=== PATIENT | male | born 1950 | race Caucasian/White ===

== ENCOUNTER 2019-01-23 09:03 | Observation (INO) | payer MEDICARE, BC ==
[2019-01-23] MEDS ORDERED: HYDROcodone/APAP 5-325MG 1 EACH TAB PO STA (09:44)
--- NOTE | 2019-01-23 10:01 | XR ---
Chest x-ray with right RIBS HISTORY: Trauma and pain frontal view of the chest and 4 views of the right ribs submitted. There is a small right apical pneumothorax. Sixth rib shows minimally displaced fracture laterally. T here may be small pleural effusion. Possible nondisplaced seventh rib fracture also present. Heart is enlarged although patient is rotated. Right hemidiaphragm slightly elevated. Arthropathy noted in th e right shoulder. The aorta is dense. Degenerative disc changes in the visualized spine. IMPRESSION: Rib fractures on the right, small apical right pneumothorax.
--- NOTE | 2019-01-23 10:44 | ED ---
Fall HPI - General Chief Complaint: Fall Stated Complaint: FALL AT HOME Time Seen by Provider: 01/23/19 09:26 Source: patient Mode of arrival: ambulatory - History of Present Illness Initial Comments: Patient is a 69-year-old male complaining of right-sided rib pain x 3 days. Patient states he was getting out of the bathtub on Wednesday night slipped and fell onto his right side, on the side of the tub. States his pain was minimal and controlled with Tylenol for the first 2 days and then yesterday pain increased. Admits to pain with deep breaths, sitting, standing, and twisting. Patient denies hitting his head or any other injuries. - Related Data Home Medications Medication Instructions Recorded Confirmed Acetaminophen-Codeine 300-30mg 1 tab PO ONCE PRN 01/23/19 01/23/19 [Tylenol w/codeine #3] Aspirin EC [Ecotrin Low Dose] 81 mg PO HS 01/23/19 01/23/19 Carbidopa-Levodopa 25-100 mg 1 tab PO TID 01/23/19 01/23/19 [Sinemet 25-100] Simvastatin [Zocor] 20 mg PO HS 01/23/19 01/23/19 rOPINIRole HCL [Requip] 2 mg PO TID 01/23/19 01/23/19 Allergies Allergy/AdvReac Type Severity Reaction Status Date / Time Penicillins Allergy Rash/Hives Verified 01/23/19 09:25 Review of Systems ROS Statement: Those systems with pertinent positive or pertinent negative responses have been documented in the HPI. ROS Other: All systems not noted in ROS Statement are negative. Past Medical History Additional Past Medical History / Comment(s): parkensons hypotension History of Any Multi-Drug Resistant Organisms: None Reported Past Surgical History: Orthopedic Surgery Additional Past Surgical History / Comment(s): oral surg foot Past Psychological History: No Psychological Hx Reported Smoking Status: Former smoker Past Alcohol Use History: Occasional Past Drug Use History: None Reported General Exam - General Exam Comments Initial Comments: GENERAL: Well-appearing, well-nourished and in no acute distress, although bren ears to be in pain. HEAD: Atraumatic, normocephalic. EYES: Pupils equal round and reactive to light, extraocular movements intact, sclera anicteric, conjunctiva are normal. ENT: TMs normal, nares patent, oropharynx clear without exudates. Moist mucous membranes. NECK: Normal range of motion, supple without lymphadenopathy or JVD. LUNGS: Breath sounds clear to auscultation bilaterally and equal. No wheezes rales or rhonchi. Pain with deep inhalation. HEART: Regular rate and rhythm without murmurs, rubs or gallops. ABDOMEN: Soft, nontender, normoactive bowel sounds. No guarding, no rebound. No masses appreciated. : Deferred EXTREMITIES: Normal range of motion, no pitting or edema. No clubbing or cyanosis. NEUROLOGICAL: Cranial nerves II through XII grossly intact. Normal speech, no rmal gait. PSYCH: Normal mood, normal affect. SKIN: Warm, Dry, normal turgor, no rashes or lesions noted. Chest: TTP over right anterior ribs, ~#5-8 Limitations: no limitations Course Vital Signs 01/23/19 01/23/19 09:07 09:55 Temperature 97.8 F Pulse Rate 65 59 L Respiratory 16 16 Rate Blood Pressure 195/104 175/102 O2 Sat by Pulse 97 98 Oximetry Medical Decision Making - Medical Decision Making Patient is a 69-year-old male complaining of right-sided rib pain 3 days after falling trying to get out of the bathtub. X-ray reveals 6 and seventh rib fractures and small right pneumothorax. CT shows 15-20% pneumo on the right. Case discussed with Dr. Mclean. Patient will be admitted to trauma with Dr. Ortega and consult with Dr. Ortega. Disposition Clinical Impression: Pneumothorax on right, Multiple fractures of ribs, right side, initial encounter for closed fracture Disposition: ADMITTED IP TO THIS HOSP Condition: Stable Referrals: Willi Hall MD [Primary Care Provider] - 1-2 days Decision Time: 12:23
--- NOTE | 2019-01-23 11:15 | CT ---
EXAMINATION TYPE: CT chest wo con DATE OF EXAM: 01/23/2019 COMPARISON: Chest x-ray of the same date HISTORY: chest pain CT DLP: 404 mGycm. Automated Exposure Control for Dose Reduction was Utilized. TECHNIQUE: CT scan of the thorax is performed without IV contrast. FINDINGS: LUNGS: There is a right-sided pneumothorax estimated at approximately 15-20 % with maximum pleural se paration at the right lung base of 2.7 cm and at the right lung apex of 5 mm. Linear bibasilar atelec tasis is seen. No findings concerning for pulmonary laceration at this time. Trace right pleural effu patito is noted. MEDIASTINUM: Lack of IV contrast is noted to limit evaluation for mediastinal and especially hilar ad enopathy. There are no definitive greater than 1 cm hilar or mediastinal lymph nodes. Cardiomegaly is present without pericardial effusion severe coronary artery calcifications are noted. OTHER: The thyroid gland is enlarged within the left lobe and heterogenous. Thyroid ultrasound is rec ommended on a nonemergent basis. There is an acute fracture that is minimally displaced of the right sixth rib with displacement 1 mm. Moderate degenerative changes of the thoracic spine are seen. Flowing anterior osteophytes are prese nt suggesting diffuse idiopathic skeletal hyperostosis. IMPRESSION: 1. Confirmation of a right basilar pneumothorax estimated at approximately 15-20% with a minimally di splaced right lateral sixth rib fracture and bibasilar atelectasis. 2. Enlargement and heterogeneity of the left thyroid lobe. Thyroid ultrasound is recommended for furt her evaluation on a nonemergent basis.
[2019-01-23] MEDS ORDERED: ONDANSETRON 4 MG/2 ML VIAL IVP PRN (12:11)
[2019-01-23] MEDS ORDERED: NALOXONE 0.4 MG/ML 1 ML VIAL IV PRN (12:11)
[2019-01-23] MEDS ORDERED: MORPHINE SULFATE 4 MG/ML SYRINGE IV PRN (12:11)
[2019-01-23] MEDS ORDERED: ACETAMINOPHEN TAB 325 MG TAB PO PRN (12:11)
[2019-01-23] MEDS ORDERED: hydrALAZINE HCL 20 MG/ML 1 ML VIAL IVP STA (14:01)
--- NOTE | 2019-01-23 15:33 | P.GSCN ---
History of Present Illness Consult date: 01/23/19 Reason for Consult: Traumatic pneumothorax, surgical recommendations Requesting physician: Rafia Burciaga History of present illness: This is a 69-year-old gentleman who follows on an outpatient basis with Dr. Willi Hall. He has a previous medical history of tobacco dependence, Parkinson's, hypotension, and orthopedic surgery. He presented to [facility] emergency room with complaints of right-sided rib pain. Apparently he was home on Wednesday night and getting out of the bathtub, he slipped and fell onto his right side hitting his right ribs on the top surface. His pain was initially controlled with Tylenol, however over the last couple of days the pain has increased to the point where he felt he needed to present to the emergency room. Rib x-ray completed in the emergency room demonstrated a small right apical pneumothorax with rib fracture to the sixth and seventh rib. CAT scan of the chest was also completed confirming right-sided pneumothorax approximately 15-20% with sixth rib fracture. Consultation was placed to Dr. Ortega from cardiothoracic surgery for treatment recommendations. Review of Systems Review of systems was completed and was negative except as noted. - Respiratory Reports pain Past Medical History Additional Past Medical History / Comment(s): parkensons hypotension History of Any Multi-Drug Resistant Organisms: None Reported Past Surgical History: Orthopedic Surgery Additional Past Surgical History / Comment(s): oral surg foot Past Psychological History: No Psychological Hx Reported Smoking Status: Former smoker Past Alcohol Use History: Occasional Past Drug Use History: None Reported Medications and Allergies Home Medications Medication Instructions Recorded Confirmed Type Acetaminophen-Codeine 300-30mg 1 tab PO ONCE PRN 01/23/19 01/23/19 History [Tylenol w/codeine #3] Aspirin EC [Ecotrin Low Dose] 81 mg PO HS 01/23/19 01/23/19 History Carbidopa-Levodopa 25-100 mg 1 tab PO TID 01/23/19 01/23/19 History [Sinemet 25-100] Simvastatin [Zocor] 20 mg PO HS 01/23/19 01/23/19 History rOPINIRole HCL [Requip] 2 mg PO TID 01/23/19 01/23/19 History Allergies Allergy/AdvReac Type Severity Reaction Status Date / Time Penicillins Allergy Rash/Hives Verified 01/23/19 09:25 Surgical - Exam Vital Signs Temp Pulse Resp BP Pulse Ox 97.8 F 65 16 195/104 97 01/23/19 09:07 01/23/19 09:07 01/23/19 09:07 01/23/19 09:07 01/23/19 09:07 - General well developed, well nourished, no distress, moderate pain - Eyes PERRL, normal ocular movement - ENT no hearing loss - Neck no masses, no bruits, trachea midline - Respiratory Lungs sounds clear bilaterally. Respirations even, nonlabored. Currently on room air with oxygen saturation 98%. No chest wall deformities although patient does have point tenderness over the right anterior rib area. - Cardiovascular S1, S2 present. Regular rate and rhythm. Palpable peripheral pulses bilaterally. No edema present. No calf pain or tenderness noted. - Abdomen Abdomen: soft, non tender, bowel sounds - Genitourinary Deferred - Rectum Deferred - Integumentary no rash, no growths - Neurologic normal coordination, normal sensation - Musculoskeletal normal posture - Psychiatric oriented to time, oriented to person, oriented to place, speech is normal, memory intact Results - Imaging Chest x-ray: report reviewed, image reviewed CT scan - chest: report reviewed, image reviewed Assessment and Plan Assessment: 1. Right-sided traumatic pneumothorax, status post fall 2. Right-sided rib fractures 3. Previous tobacco dependence Plan: The patient was seen and examined in the emergency room. Chart says diagnostics were reviewed. The patient's chest x-ray and CAT scan were reviewed with Dr. Ortega. The patient does have some continued rib pain but is in no acute distress and is oxygenating appropriately. At this time we recommend no surgical intervention. Will continue to monitor overnight. Chest x-ray ordered for the morning. If no increase in pneumothorax and patient remains stable he may be discharged to home tomorrow. Patient needs adequate pain control. Medical management per primary care service. Thank you for this consult. Please call us with any questions. Time with Patient: Greater than 30
[2019-01-23 16:00] VITALS: RESP 20; BMI 31.3
[2019-01-23] MEDS: HYDROcodone/APAP 5-325MG 1 EACH TAB PO PRN ×2 (16:31→20:38)
[2019-01-23] MEDS: CARBIDOPA-LEVODOPA 25-100 MG 1 EACH TAB PO SCH ×2 (16:39→21:29)
[2019-01-23] MEDS ORDERED: ATORVASTATIN 10 MG TAB PO SCH (21:00)
[2019-01-23 21:53] VITALS: TEMP 97.5
[2019-01-23] MEDS ORDERED: CARBIDOPA-LEVODOPA 25-100 MG 1 EACH TAB PO SCH (22:00)
[2019-01-24] MEDS: HYDROcodone/APAP 5-325MG 1 EACH TAB PO PRN ×3 (04:19→12:12)
[2019-01-24 05:29] VITALS: BP 154/93; PULSE 57
[2019-01-24] MEDS: CARBIDOPA-LEVODOPA 25-100 MG 1 EACH TAB PO SCH ×2 (07:57→12:13)
--- NOTE | 2019-01-24 08:50 | XR ---
EXAMINATION TYPE: XR chest 2V DATE OF EXAM: 01/24/2019 COMPARISON: 01/23/2019 TECHNIQUE: PA and lateral views submitted. HISTORY: Fall with pneumothorax FINDINGS: There is a right apical small pneumothorax measuring approximately 5%. Bilateral consolidation and pl eural thickening or tiny effusion stable. Hypertrophic and degenerative change of the spine. Arthropa thy of the shoulders. Heart size stable. Rib deformity along the right lateral rib cage is stable com patible with fracture. IMPRESSION: 1. Small right apical pneumothorax measuring approximately 5%. 2. Stable pleural-parenchymal changes.
--- NOTE | 2019-01-24 11:46 | P.GSHP ---
<Paty Mccauley A - Last Filed: 01/24/19 11:41> History of Present Illness H&P Date: 01/24/19 Chief Complaint: pain s/p fall at home This document serves as H&P and discharge summary CHIEF COMPLAINT: Pain status post fall HISTORY OF PRESENT ILLNESS: 69-year-old male who fell in his bathtub on Wednesday night. The patient presented to the emergency room with increased pain on the right side of his chest. Rib x-ray completed in the emergency room revealed a small right apical pneumothorax with rib fractures of the sixth and seventh rib. CAT scan of the chest was completed revealing right-sided pneumothorax approximately 15-20% with 6th rib fracture. Thoracic surgery was consulted for further evaluation. No surgical intervention was recommended. Repeat chest x-ray performed this morning reveals 5% pneumothorax. PAST MEDICAL HISTORY: See list. PAST SURGICAL HISTORY: See list. SOCIAL HISTORY: No illicit drug use. REVIEW OF SYSTEMS: CONSTITUTIONAL: Denies fever or chills. HEENT: Denies blurred vision, vision changes, or eye pain. Denies hemoptysis CARDIOVASCULAR: Denies chest pain or pressure. RESPIRATORY: No shortness of breath. GASTROINTESTINAL: Denies nausea. Denies vomiting. Denies diarrhea or constipation. HEMATOLOGIC: Denies bleeding disorders. GENITOURINARY: Denies any blood in urine. SKIN: Denies pruitis. Denies rash. PHYSICAL EXAM: VITAL SIGNS: Reviewed. GENERAL: Well-developed in no acute distress. HEENT: No sclera icterus. Extraocular movements grossly intact. Moist buccal mucosa. Head is atraumatic, normocephalic. RESP: respirations even and unlabored. pain with deep inspiration. No obvious deformities. ABDOMEN: Soft. Nondistended. Nontender. NEUROLOGIC: Alert and oriented. Cranial nerves II through XII grossly intact. ASSESSMENT: 1. Pain, status post fall 2. Right pneumothorax 3. Right rib fractures, 6 & 7 PLAN: Patient is doing well overall. Pain is controlled with oral medications. Patient using IS 10 times an hour. Repeat XR reveals only 5% pneumothorax. Patient is stable for discharge home today. He is to follow-up with his primary care physician in one to 2 days. Please see EMR for further hospital course details. Nurse practitioner note has been reviewed by physician. Signing provider agrees with the documented findings, assessment, and plan of care. Past Medical History Past Medical History: Hyperlipidemia, Musculoskeletal Disorder, Neurologic Disorder Additional Past Medical History / Comment(s): parkensons hypotension History of Any Multi-Drug Resistant Organisms: None Reported Past Surgical History: Orthopedic Surgery Additional Past Surgical History / Comment(s): oral surg foot Past Anesthesia/Blood Transfusion Reactions: No Reported Reaction, Motion Sickness Past Psychological History: No Psychological Hx Reported Smoking Status: Former smoker Past Alcohol Use History: Occasional Past Drug Use History: None Reported - Past Family History Father History Unknown: Yes Mother Family Medical History: No Reported History Additional Family Medical History / Comment(s): Mother is healthy and 87yrs old. Medications and Allergies Home Medications Medication Instructions Recorded Confirmed Type Aspirin EC [Ecotrin Low Dose] 81 mg PO HS 01/23/19 01/23/19 History Carbidopa-Levodopa 25-100 mg 1 tab PO TID 01/23/19 01/23/19 History [Sinemet 25-100 mg] Simvastatin [Zocor] 20 mg PO HS 01/23/19 01/23/19 History rOPINIRole HCL [Requip] 2 mg PO TID 01/23/19 01/23/19 History Docusate [Colace] 100 mg PO BID #30 capsule 01/24/19 Rx Hydrocodone/Acetaminophen [[place] 1 tab PO Q4HR PRN 3 Days #18 tab 01/24/19 Rx 5-325] Allergies Allergy/AdvReac Type Severity Reaction Status Date / Time Penicillins Allergy Rash/Hives Verified 01/23/19 09:25 Surgical - Exam Vital Signs Temp Pulse Resp BP Pulse Ox 97.8 F 65 16 195/104 97 01/23/19 09:07 01/23/19 09:07 01/23/19 09:07 01/23/19 09:07 01/23/19 09:07 <Anoop Ortega - Last Filed: 01/24/19 12:46> Surgical - Exam Vital Signs Temp Pulse Resp BP Pulse Ox 97.8 F 65 16 195/104 97 01/23/19 09:07 01/23/19 09:07 01/23/19 09:07 01/23/19 09:07 01/23/19 09:07 Assessment and Plan Plan: Patient still well. We will repeat x-ray in the a.m.
[2019-01-24] MEDS ORDERED: CARBIDOPA-LEVODOPA 25-100 MG 1 EACH TAB PO SCH (12:14)
--- NOTE | 2019-01-24 12:36 | P.PN ---
Subjective Progress Note Date: 01/24/19 Principal diagnosis: Right-sided traumatic pneumothorax, status post fall, right-sided rib fractures. History of tobacco dependence. Upon assessment this morning the patient sitting up in bed in no acute distress. States pain is better controlled, mostly hurts with coughing and deep breathing. No new complaints. Objective - Vital Signs Vital signs: Vital Signs Temp 97.5 F L 01/24/19 05:15 Pulse 57 L 01/24/19 05:15 Resp 20 01/24/19 08:00 BP 154/93 01/24/19 05:15 Pulse Ox 96 01/24/19 05:15 Intake & Output 01/23/19 01/24/19 01/24/19 18:59 06:59 18:59 Intake Total 500 Balance 500 Weight 99 kg Intake: Oral 500 Other: # Voids 1 1 3 - Constitutional General appearance: Present: cooperative, no acute distress - Respiratory Details: Lungs sounds clear bilaterally. Respiration even, nonlabored. Currently on room air with oxygen saturation 96%. Able to achieve 1750 mL on his incentive spirometry. - Cardiovascular Details: S1, S2 present. Regular rate and rhythm. Palpable peripheral pulses bilaterally. No edema present. No calf pain or tenderness noted. - Gastrointestinal Gastrointestinal Comment(s): Abdomen soft, nontender, nondistended. Active bowel sounds 4 quadrants. Tolerating diet. - Genitourinary Genitourinary Comment(s): Voiding - Integumentary Integumentary Comment(s): Skin is warm and dry with evidence of good perfusion. - Neurologic Neurologic: Present: CNII-XII intact - Musculoskeletal Musculoskeletal: Present: gait normal, strength equal bilaterally - Psychiatric Psychiatric: Present: A&O x's 3, appropriate affect, intact judgment & insight - Allied health notes Allied health notes reviewed: nursing - Imaging and Cardiology Chest x-ray: report reviewed, image reviewed Assessment and Plan Assessment: 1. Right-sided traumatic pneumothorax, status post fall 2. Right-sided rib fractures 3. Previous tobacco dependence Plan: The patient was seen and examined at the bedside this morning. Repeat chest x- ray was reviewed with Dr. Ortega. The patient does have some continued rib pain but is in no acute distress and is oxygenating appropriately. No surgical intervention warranted. He may be discharged to home from our standpoint. Pain control per primary care service. Time with Patient: Greater than 30
== END 2019-01-24 14:08 | disposition home or self-care (01) ==
LOC: EC 09:03 → 4MS4W 12:53
PROVIDERS: ADMIT Surgery; ATTEND Surgery
DX: S22.41XA Multiple fractures of ribs, right side, initial encounter for closed fracture (principal); S27.0XXA Traumatic pneumothorax, initial encounter; I95.9 Hypotension, unspecified; E78.5 Hyperlipidemia, unspecified; G20 Parkinson's disease; Z87.891 Personal history of nicotine dependence; Z79.82 Long term (current) use of aspirin; Z79.899 Other long term (current) drug therapy; Z88.0 Allergy status to penicillin; W18.2XXA Fall in (into) shower or empty bathtub, initial encounter; Y92.002 Bathroom of unspecified non-institutional (private) residence as the place of occurrence of the external cause
CPT/HCPCS: 96374; 99285; 71101; 71046; 71250; G0378 ×2; J0360

== ENCOUNTER 2024-04-16 11:59 | Emergency (ER) | payer MEDICARE, BC ==
--- NOTE | 2024-04-16 12:57 | ED ---
General Adult HPI - General Chief complaint: Syncope Stated complaint: syncope Time Seen by Provider: 04/16/24 12:20 Source: patient, family, RN notes reviewed Mode of arrival: wheelchair Limitations: no limitations - History of Present Illness Initial comments: Patient is a 74-year-old male present to the emergency department with syncopal episode. Patient was at [employer]. Patient was sitting down the time when he passed out. Patient feels fine at this time and has no complaints. Patient did have a similar episode around a month ago with bradycardia. Patient was given medications at that time by EMS to raise his heart rate. Family states no h istory of bradycardia however patient thinks he does have low heart rate normally. No chest pain or back pain. No abdominal pain or headache. No head injury. - Related Data Home Medications Medication Instructions Recorded Confirmed Aspirin EC [Ecotrin Low Dose] 81 mg PO HS 01/23/19 01/23/19 Carbidopa-Levodopa 25-100 mg 1 tab PO TID 01/23/19 01/23/19 [Sinemet 25-100 mg] Simvastatin [Zocor] 20 mg PO HS 01/23/19 01/23/19 rOPINIRole HCL [Requip] 2 mg PO TID 01/23/19 01/23/19 Previous Rx's Medication Instructions Recorded Docusate [Colace] 100 mg PO BID #30 capsule 01/24/19 Hydrocodone/Acetaminophen [[place] 1 tab PO Q4HR PRN 3 Days #18 tab 01/24/19 5-325] Allergies Allergy/AdvReac Type Severity Reaction Status Date / Time Latex, Natural Rubber Allergy Rash/Hives Verified 04/16/24 12:17 Penicillins Allergy Rash/Hives Verified 04/16/24 12:16 Review of Systems ROS Statement: Those systems with pertinent positive or pertinent negative responses have been documented in the HPI. ROS Other: All systems not noted in ROS Statement are negative. Constitutional: Denies: fever Eyes: Denies: eye pain ENT: Denies: ear pain Respiratory: Denies: cough, dyspnea Cardiovascular: Denies: chest pain, palpitations Endocrine: Denies: fatigue Gastrointestinal: Denies: abdominal pain Genitourinary: Denies: dysuria Musculoskeletal: Denies: back pain Skin: Denies: rash Neurological: Denies: headache, weakness, confusion Past Medical History Past Medical History: Hyperlipidemia, Musculoskeletal Disorder, Neurologic Disorder Additional Past Medical History / Comment(s): parkensons hypotension History of Any Multi-Drug Resistant Organisms: None Reported Past Surgical History: Orthopedic Surgery Additional Past Surgical History / Comment(s): oral surg foot Past Anesthesia/Blood Transfusion Reactions: No Reported Reaction, Motion Sickness Past Psychological History: No Psychological Hx Reported Past Alcohol Use History: Occasional Past Drug Use History: None Reported - Past Family History Father History Unknown: Yes Mother Family Medical History: No Reported History Additional Family Medical History / Comment(s): Mother is healthy and 87yrs old. General Exam Limitations: no limitations General appearance: alert, in no apparent distress Head exam: Present: atraumatic, normocephalic Eye exam: Present: normal appearance, PERRL, EOMI ENT exam: Present: normal oropharynx Neck exam: Present: normal inspection. Absent: tenderness Respiratory exam: Present: normal lung sounds bilaterally Cardiovascular Exam: Present: normal rhythm, bradycardia GI/Abdominal exam: Present: soft. Absent: tenderness Extremities exam: Present: normal inspection, full ROM. Absent: tenderness Neurological exam: Present: alert, oriented X3, CN II-XII intact, other (Resting tremor consistent with patient's history of Parkinson's). Absent: motor sensory deficit Expanded Motor strength exam: RUE: 5, LUE: 5, RLE: 5, LLE: 5 Psychiatric exam: Present: normal affect, normal mood Skin exam: Present: normal color Course Vital Signs 04/16/24 04/16/24 04/16/24 12:15 13:08 14:12 Temperature 97.8 F Pulse Rate 53 L 50 L 49 L Respiratory 16 20 20 Rate Blood Pressure 100/58 115/73 92/63 O2 Sat by Pulse 100 99 98 Oximetry EKG Findings - EKG Results: EKG: interpreted by ERMD, sinus rhythm, normal axis, normal QRS, normal ST/T EKG shows: bradycardia Medical Decision Making - Medical Decision Making Was pt. sent in by a medical professional or institution (, PA, SPICE CLEANER, urgent care, hospital, or fci...) When possible be specific @ -No Did you speak to anyone other than the patient for history (EMS, parent, family, police, friend...)? What history was obtained from this source @ -Family is present helps provide history of episode as well as history of bradycardia Did you review nursing and triage notes (agree or disagree)? Why? @ -I reviewed and agree with nursing and triage notes Were old charts reviewed (outside hosp., previous admission, EMS record, old EKG, old radiological studies, urgent care reports/EKG's, fci records)? Report findings @ -No old charts were reviewed Differential Diagnosis (chest pain, altered mental status, abdominal pain women, abdominal pain men, vaginal bleeding, weakness, fever, dyspnea, syncope, headache, dizziness, GI bleed, back pain, seizure, CVA, palpatations, mental health, musculoskeletal)? @ -Differential Syncope: Valvular disease, hypertrophic cardiomyopathy, pulmonary embolism, tamponade, tachycardia, bradycardia, [place], hypovolemia, hemorrhage, dissection, anemia, intracranial hemorrhage, seizure, hypoglycemia, carbon monoxide poisoning, this is not meant to be an all-inclusive list. EKG interpreted by me (3pts min.). @ -As above X-rays interpreted by me (1pt min.). @ -X-ray shows no acute process CT interpreted by me (1pt min.). @ -None done U/S interpreted by me (1pt. min.). @ -None done What testing was considered but not performed or refused? (CT, X-rays, U/S, labs)? Why? @ -None What meds were considered but not given or refused? Why? @ -None Did you discuss the management of the patient with other professionals (professionals i.e. , PA, SPICE CLEANER, lab, RT, psych nurse, vp digital marketing social media and crm, family assessment worker, teacher, conservation science officer, rn case manager)? Give summary @ -Case discussed with Dr. Pride with plans to admit for hospital call Was smoking cessation discussed for >3mins.? @ -No Was critical care preformed (if so, how long)? @ -No Were there social determinants of health that impacted care today? How? (Homeles sness, low income, unemployed, alcoholism, drug addiction, transportation, low edu. Level, literacy, decrease access to med. care, fpc, rehab)? @ -No Was there de-escalation of care discussed even if they declined (Discuss DNR or withdrawal of care, Hospice)? DNR status @ -Plan for patient to be admitted for syncope for further evaluation and cardiac consult. Patient and family refused. Patient will leave AGAINST MEDICAL ADVICE What co-morbidities impacted this encounter? (DM, HTN, Smoking, COPD, CAD, Cancer, CVA, ARF, Chemo, Hep., AIDS, mental health diagnosis, sleep apnea, morbid obesity)? @ -None Was patient admitted / discharged? Hospital course, mention meds given and route, prescriptions, significant lab abnormalities, going to OR and other pertinent info. @ -Patient presents with syncopal episode. Patient is bradycardic. Plans for admission however patient refuses. Patient does demonstrate medical decision- making and family is present. Patient does have a patent leather sorter that he will follow-up with. Undiagnosed new problem with uncertain prognosis? @ -No Drug Therapy requiring intensive monitoring for toxicity (Heparin, Nitro, Insulin, Cardizem)? @ -No Were any procedures done? @ -No Diagnosis/symptom? @ -Syncope Acute, or Chronic, or Acute on Chronic? @ -Acute Uncomplicated (without systemic symptoms) or Complicated (systemic symptoms)? @ -Default Side effects of treatment? @ -No Exacerbation, Progression, or Severe Exacerbation? @ -No Poses a threat to life or bodily function? How? (Chest pain, [place], [place], pneumonia, PE, COPD, DKA, ARF, appy, cholecystitis, CVA, Diverticulitis, Homicidal, Suicidal, threat to staff... and all critical care pts) @ -No - Lab Data Result diagrams: 04/16/24 12:51 04/16/24 12:51 Lab Results 04/16/24 04/16/24 04/16/24 Range/Units 12:51 12:51 12:51 WBC 6.7 (3.8-10.6) k/uL RBC 4.49 (4.30-5.90) m/uL Hgb 14.3 (13.0-17.5) gm/dL Hct 43.1 (39.0-53.0) % MCV 96.0 (80.0-100.0) fL MCH 31.9 (25.0-35.0) pg MCHC 33.3 (31.0-37.0) g/dL RDW 11.9 (11.5-15.5) % Plt Count 135 L (150-450) k/uL MPV 9.0 Neutrophils % 74 % Lymphocytes % 13 % Monocytes % 7 % Eosinophils % 4 % Basophils % 1 % Neutrophils # 5.0 (1.3-7.7) k/uL Lymphocytes # 0.9 L (1.0-4.8) k/uL Monocytes # 0.5 (0-1.0) k/uL Eosinophils # 0.3 (0-0.7) k/uL Basophils # 0.0 (0-0.2) k/uL PT 13.7 H (10.0-12.5) sec INR 1.3 H (<1.2) APTT 29.8 (22.0-30.0) sec D-Dimer <0.17 (<0.60) mg/L FEU Sodium 139 (137-145) mmol/L Potassium 4.7 (3.5-5.1) mmol/L Chloride 101 (98-107) mmol/L Carbon Dioxide 29 (22-30) mmol/L Anion Gap 9 mmol/L BUN 28 H (9-20) mg/dL Creatinine 1.09 (0.66-1.25) mg/dL Est GFR (CKD-EPI)AfAm 76 (>60 ml/min/1.73 sqM) Est GFR (CKD-EPI)NonAf 66 (>60 ml/min/1.73 sqM) Glucose 89 (74-99) mg/dL Calcium 9.4 (8.4-10.2) mg/dL Magnesium 2.3 (1.6-2.3) mg/dL Total Bilirubin 1.3 (0.2-1.3) mg/dL AST 34 (17-59) U/L ALT 7 (4-49) U/L Alkaline Phosphatase 48 (38-126) U/L Troponin I (0.000-0.034) ng/mL Total Protein 7.0 (6.3-8.2) g/dL Albumin 4.4 (3.5-5.0) g/dL TSH 0.768 (0.465-4.680) mIU/L Free T4 1.05 (0.78-2.19) ng/dL 04/16/24 Range/Units 12:51 WBC (3.8-10.6) k/uL RBC (4.30-5.90) m/uL Hgb (13.0-17.5) gm/dL Hct (39.0-53.0) % MCV (80.0-100.0) fL MCH (25.0-35.0) pg MCHC (31.0-37.0) g/dL RDW (11.5-15.5) % Plt Count (150-450) k/uL MPV Neutrophils % % Lymphocytes % % Monocytes % % Eosinophils % % Basophils % % Neutrophils # (1.3-7.7) k/uL Lymphocytes # (1.0-4.8) k/uL Monocytes # (0-1.0) k/uL Eosinophils # (0-0.7) k/uL Basophils # (0-0.2) k/uL PT (10.0-12.5) sec INR (<1.2) APTT (22.0-30.0) sec D-Dimer (<0.60) mg/L FEU Sodium (137-145) mmol/L Potassium (3.5-5.1) mmol/L Chloride (98-107) mmol/L Carbon Dioxide (22-30) mmol/L Anion Gap mmol/L BUN (9-20) mg/dL Creatinine (0.66-1.25) mg/dL Est GFR (CKD-EPI)AfAm (>60 ml/min/1.73 sqM) Est GFR (CKD-EPI)NonAf (>60 ml/min/1.73 sqM) Glucose (74-99) mg/dL Calcium (8.4-10.2) mg/dL Magnesium (1.6-2.3) mg/dL Total Bilirubin (0.2-1.3) mg/dL AST (17-59) U/L ALT (4-49) U/L Alkaline Phosphatase (38-126) U/L Troponin I <0.012 (0.000-0.034) ng/mL Total Protein (6.3-8.2) g/dL Albumin (3.5-5.0) g/dL TSH (0.465-4.680) mIU/L Free T4 (0.78-2.19) ng/dL Disposition Clinical Impression: Syncope Disposition: LEFT AGAINST MEDICAL ADVICE Instructions (If sedation given, give patient instructions): Syncope (ED) Additional Instructions: You are leaving AGAINST MEDICAL ADVICE. Please do follow-up with your primary care physician and your patent leather sorter Wednesday. Return for passing out, low heart rate, weakness, chest pain, worsening symptoms or any other concerns. Is patient prescribed a controlled substance at d/c from ED?: No Referrals: None,Stated [Primary Care Provider] - 1-2 days Deion Wall, [REFERRING] - 1-2 days Time of Disposition: 15:42
[2024-04-16 13:12] LABS: Basophils % (A) 1 %; Eosinophils # (A) 0.3 k/uL (0-0.7); Eosinophils % (A) 4 %; HCT 43.1 % (39.0-53.0); HGB 14.3 gm/dL (13.0-17.5); Lymphocytes # (A) 0.9 k/uL (1.0-4.8); Lymphocytes % (A) 13 %; MCH 31.9 pg (25.0-35.0); MCHC 33.3 g/dL (31.0-37.0); Monocytes # (A) 0.5 k/uL (0-1.0); Monocytes % (A) 7 %; Neutrophils % (A) 74 %; Platelet Count 135 k/uL (150-450); RBC 4.49 m/uL (4.30-5.90); RDW 11.9 % (11.5-15.5); WBC 6.7 k/uL (3.8-10.6)
[2024-04-16 13:22] LABS: ALT 7 U/L (4-49); AST 34 U/L (17-59); African American GFR (CKD) 76 (>60 ml/min/1.73 sqM); Albumin 4.4 g/dL (3.5-5.0); Alkaline Phosphatase 48 U/L (38-126); Anion Gap 9 mmol/L; Blood Urea Nitrogen 28 mg/dL (9-20); Calcium 9.4 mg/dL (8.4-10.2); Carbon Dioxide 29 mmol/L (22-30); Chloride 101 mmol/L (98-107); Glucose 89 mg/dL (74-99); Magnesium 2.3 mg/dL (1.6-2.3); Non-African American GFR(CKD) 66 (>60 ml/min/1.73 sqM); Potassium 4.7 mmol/L (3.5-5.1); Sodium 139 mmol/L (137-145); Total Bilirubin 1.3 mg/dL (0.2-1.3)
[2024-04-16 13:29] LABS: INR 1.3 (<1.2); Partial Thromboplastin Time 29.8 sec (22.0-30.0); Prothrombin Time 13.7 sec (10.0-12.5)
[2024-04-16 13:37] LABS: T4, Free (Free Thyroxine) 1.05 ng/dL (0.78-2.19)
--- NOTE | 2024-04-16 14:21 | XR ---
EXAMINATION TYPE: XR chest 2V DATE OF EXAM: 04/16/2024 COMPARISON: 01/24/2019 HISTORY: 74-year-old male syncope TECHNIQUE: AP and lateral views FINDINGS: Heart normal size. Aorta and pulmonary vasculature within normal limits. Hyperinflation. There is DIS H within the mid and lower thoracic spine. No consolidation or pleural effusion. IMPRESSION: COPD. No acute process seen.
[2024-04-16 16:41] VITALS: BP 137/80; PULSE 59; RESP 18; TEMP 98
== END 2024-04-16 16:41 | disposition left against medical advice (07) ==
LOC: EC 11:59
DX: R55 Syncope and collapse (principal); Z88.0 Allergy status to penicillin; Z91.040 Latex allergy status; Z53.29 Procedure and treatment not carried out because of patient's decision for other reasons
CPT/HCPCS: 36415; 71046; 80053; 83735; 84439; 84443; 84481; 84484; 85025; 85379; 85610; 85730; 93005; 99285

== ENCOUNTER 2024-04-17 14:37 | Observation (INO) | payer MEDICARE, BC ==
--- NOTE | 2024-04-17 15:05 | ED ---
General Adult HPI - General Chief complaint: Syncope Stated complaint: Syncope Time Seen by Provider: 04/17/24 14:48 Source: patient, family Mode of arrival: wheelchair Limitations: no limitations - History of Present Illness Initial comments: Dictation was produced using KAL dictation software. please excuse any grammatical, word or spelling errors. Chief Complaint: 74-year-old male presents to the emergency department for syncope History of Present Illness: Patient 74-year-old male who presents emergency department with family. Patient was seen here in emergency department after passing out at [employer]. Is recommended to him to be admitted to the hospital for further workup however he refused. He tried to make an appoint with his cardiol ogist however internet security specialist found out that patient had left AGAINST MEDICAL ADVICE yesterday and she encouraged him to come back to the hospital to be admitted. Patient has a history of syncope with bradycardia with heart rates in the 30s last month. Yesterday patient had passed out at [employer]. Patient came straight to the emergency room after being put in a wheelchair. Patient Nuys any complaints at this time. The ROS documented in this emergency department record has been reviewed and confirmed by me. Those systems with pertinent positive or negative responses have been documented in the HPI. All other systems are other negative and/or noncontributory. - Related Data Home Medications Medication Instructions Recorded Confirmed Carbidopa-Levodopa 25-100 mg 1.5 tab PO TID 01/23/19 04/17/24 [Sinemet 25-100 mg] rOPINIRole HCL [Requip] 2 mg PO TID 01/23/19 04/17/24 Atorvastatin [Lipitor] 40 mg PO HS 04/16/24 04/17/24 Melatonin 5 mg PO HS 04/16/24 04/17/24 Rivaroxaban [Xarelto] 20 mg PO HS 04/16/24 04/17/24 Sennosides/Docusate Sodium 2 tab PO HS 04/16/24 04/17/24 [Senna-S 8.6-50 mg Tablet] Allergies Allergy/AdvReac Type Severity Reaction Status Date / Time Latex, Natural Rubber Allergy Rash/Hives Verified 04/17/24 15:15 Penicillins Allergy Rash/Hives Verified 04/17/24 15:15 Review of Systems ROS Statement: Those systems with pertinent positive or pertinent negative responses have been documented in the HPI. ROS Other: All systems not noted in ROS Statement are negative. Past Medical History Past Medical History: Hyperlipidemia, Musculoskeletal Disorder, Neurologic Disorder Additional Past Medical History / Comment(s): parkensons hypotension History of Any Multi-Drug Resistant Organisms: None Reported Past Surgical History: Orthopedic Surgery Additional Past Surgical History / Comment(s): oral surg foot Past Anesthesia/Blood Transfusion Reactions: No Reported Reaction, Motion Sickness Past Psychological History: No Psychological Hx Reported Past Alcohol Use History: Occasional Past Drug Use History: None Reported - Past Family History Father History Unknown: Yes Mother Family Medical History: No Reported History Additional Family Medical History / Comment(s): Mother is healthy and 87yrs old. General Exam - General Exam Comments Initial Comments: PHYSICAL EXAM: General Impression: Alert and oriented x3, not in acute distress, right upper extremity tremor HEENT: Normocephalic atraumatic, extra-ocular movements intact, pupils equal and reactive to light bilaterally, mucous membranes moist. Cardiovascular: Heart regular rate and rhythm Chest: Able to complete full sentences, no retractions, no tachypnea Abdomen: abdomen soft, non-tender, non-distended, no organomegaly Musculoskeletal: Pulses present and equal in all extremities, no peripheral edema Motor: no focal deficits noted Neurological: CN II-XII grossly intact, no focal motor or sensory deficits noted Skin: Intact with no visualized rashes Psych: Normal affect and mood Limitations: no limitations Course Vital Signs 04/17/24 04/17/24 04/17/24 14:43 15:00 16:20 Temperature 98 F Pulse Rate 62 61 Pulse Rate [ 51 L Launderette Attendant ] Respiratory 16 18 Rate Blood Pressure 102/44 106/71 O2 Sat by Pulse 97 99 Oximetry 04/17/24 04/17/24 04/17/24 18:08 19:46 23:09 Temperature Pulse Rate 51 L 56 L 52 L Pulse Rate [ Launderette Attendant ] Respiratory 18 16 16 Rate Blood Pressure 135/84 116/69 145/82 O2 Sat by Pulse 97 98 98 Oximetry 04/18/24 04/18/24 04/18/24 00:00 01:00 02:00 Temperature Pulse Rate 55 L 56 L 56 L Pulse Rate [ Launderette Attendant ] Respiratory 18 18 18 Rate Blood Pressure 165/94 174/96 174/96 O2 Sat by Pulse 99 98 98 Oximetry 04/18/24 04/18/24 04/18/24 03:01 04:44 07:55 Temperature Pulse Rate 50 L 51 L 51 L Pulse Rate [ Launderette Attendant ] Respiratory 16 16 14 Rate Blood Pressure 189/104 162/108 159/107 O2 Sat by Pulse 98 98 Oximetry 04/18/24 04/18/24 08:30 10:08 Temperature Pulse Rate 52 L Pulse Rate [ Launderette Attendant ] Respiratory 18 Rate Blood Pressure 129/96 107/86 O2 Sat by Pulse 95 Oximetry EKG Findings - EKG Comments: EKG Findings:: My EKG interpretation: Ventricular rate 62, sinus rhythm,. 155, QRS 87, QTc 423. No NM prolongation, no QTC prolongation, no ST or T-wave changes noted. EKG compared to April 16, 2024 showing no changes. Overall, this EKG is unremarkable Medical Decision Making - Medical Decision Making Was pt. sent in by a medical professional or institution (, PA, LIEUTENANT FIREFIGHTER, urgent care, hospital, or shelter...) When possible be specific @ -No Did you speak to anyone other than the patient for history (EMS, parent, family, police, friend...)? What history was obtained from this source @ -No Did you review nursing and triage notes (agree or disagree)? Why? @ -I reviewed and agree with nursing and triage notes Were old charts reviewed (outside hosp., previous admission, EMS record, old EKG, old radiological studies, urgent care reports/EKG's, shelter records)? Report findings @ -No old charts were reviewed Differential Diagnosis (chest pain, altered mental status, abdominal pain women, abdominal pain men, vaginal bleeding, musculoskeletal, weakness, fever, dyspnea, syncope, headache, dizziness, GI bleed, back pain, seizure, CVA, palpatations, mental health)? @ -Differential Syncope: Valvular disease, hypertrophic cardiomyopathy, pulmonary embolism, tamponade, tachycardia, bradycardia, PR, hypovolemia, hemorrhage, dissection, anemia, intracranial hemorrhage, seizure, hypoglycemia, carbon monoxide poisoning, this is not meant to be an all-inclusive list. EKG interpreted by me (3pts min.). @ -See above X-rays interpreted by me (1pt min.). @ -Chest x-ray shows no acute processes CT interpreted by me (1pt min.). @ -None done U/S interpreted by me (1pt. min.). @ -None done What testing was considered but not performed or refused? (CT, X-rays, U/S, labs)? Why? @ -None What meds were considered but not given or refused? Why? @ -None Was smoking cessation discussed for >3mins.? @ -No Were there social determinants of health that impacted care today? How? (Homelessness, low income, unemployed, alcoholism, drug addiction, transportation, low edu. Level, literacy, decrease access to med. care, nursing home, rehab)? @ -No Was there de-escalation of care discussed even if they declined (Discuss DNR or withdrawal of care, Hospice)? DNR status @ -No What co-morbidities impacted this encounter? (DM, HTN, Smoking, COPD, CAD, Cancer, CVA, ARF, Chemo, Hep., AIDS, mental health diagnosis, sleep apnea, morbid obesity)? @ -None Was patient admitted / discharged? Hospital course, mention meds given and route, prescriptions, significant lab abnormalities, going to OR and other pertinent info. @ -74-year-old male with history of bradycardia presents to the ER after syncopal episode yesterday. Was seen in the ER left AGAINST MEDICAL ADVICE however was instructed to come to the hospital be admitted per his internet security specialist. Vital signs upon arrival are within acceptable limits. Patient well-appearing at the bedside. EKG shows no pathologic bradycardia. Labs and imaging unremarkable. Patient admitted to [facility] emergency department physician group Did you discuss the management of the patient with other professionals (professionals i.e. , PA, LIEUTENANT FIREFIGHTER, lab, RT, psych nurse, aids social worker, towel distributor, teacher, delinquency prevention officer, outsole caser)? Give summary @ -Hospitalist for admission Was critical care preformed (if so, how long)? @ -No Undiagnosed new problem with uncertain prognosis? @ -No Drug Therapy requiring intensive monitoring for toxicity (Heparin, Nitro, Insulin, Cardizem)? @ -No Were any procedures done? @ -No Diagnosis/symptom? Acute, or Chronic, or Acute on Chronic? Uncomplicated (without systemic symptoms) or Complicated (systemic symptoms)? @ -Syncope Side effects of treatment? @ -No Exacerbation, Progression, or Severe Exacerbation? @ -No Poses a threat to life or bodily function? How? (Chest pain, [place], [place], pneumonia, PE, COPD, DKA, ARF, appy, cholecystitis, CVA, Diverticulitis, Homicidal, Suicidal, threat to staff... and all critical care pts) @ -yes - Lab Data Result diagrams: 04/17/24 15:08 04/17/24 16:18 Lab Results 04/17/24 04/17/24 Range/Units 15:08 15:08 WBC 6.8 (3.8-10.6) k/uL RBC 4.37 (4.30-5.90) m/uL Hgb 14.3 (13.0-17.5) gm/dL Hct 42.0 (39.0-53.0) % MCV 96.1 (80.0-100.0) fL MCH 32.8 (25.0-35.0) pg MCHC 34.1 (31.0-37.0) g/dL RDW 12.0 (11.5-15.5) % Plt Count 115 L (150-450) k/uL MPV 9.2 Neutrophils % 76 % Lymphocytes % 15 % Monocytes % 5 % Eosinophils % 2 % Basophils % 0 % Neutrophils # 5.1 (1.3-7.7) k/uL Lymphocytes # 1.0 (1.0-4.8) k/uL Monocytes # 0.4 (0-1.0) k/uL Eosinophils # 0.2 (0-0.7) k/uL Basophils # 0.0 (0-0.2) k/uL Troponin I <0.012 (0.000-0.034) ng/mL Disposition Clinical Impression: Syncope Disposition: ADMITTED IP TO THIS HOSP Condition: Fair
[2024-04-17 15:24] LABS: Basophils % (A) 0 %; Eosinophils # (A) 0.2 k/uL (0-0.7); Eosinophils % (A) 2 %; HGB 14.3 gm/dL (13.0-17.5); Lymphocytes % (A) 15 %; MCH 32.8 pg (25.0-35.0); MCHC 34.1 g/dL (31.0-37.0); MCV 96.1 fL (80.0-100.0); Mean Platelet Volume 9.2; Monocytes # (A) 0.4 k/uL (0-1.0); Monocytes % (A) 5 %; Neutrophils # (A) 5.1 k/uL (1.3-7.7); Neutrophils % (A) 76 %; Platelet Count 115 k/uL (150-450); RBC 4.37 m/uL (4.30-5.90); WBC 6.8 k/uL (3.8-10.6)
[2024-04-17] MEDS ORDERED: NALOXONE 0.4 MG/ML 1 ML VIAL IV PRN (15:39)
--- NOTE | 2024-04-17 15:44 | XR ---
EXAMINATION TYPE: XR chest 2V DATE OF EXAM: 04/17/2024 COMPARISON: 04/16/2024 HISTORY: Syncope TECHNIQUE: Frontal and lateral views of the chest are obtained. FINDINGS: There is no focal air space opacity, pleural effusion, or pneumothorax seen. The cardiac silhouette size is within normal limits. The osseous structures are intact. IMPRESSION: No acute cardiopulmonary process. No interval change.
[2024-04-17] MEDS: SODIUM CHLORIDE 0.9% 1,000 ML IV SCH (16:14)
[2024-04-17 17:10] LABS: African American GFR (CKD) 80 (>60 ml/min/1.73 sqM); Anion Gap 6 mmol/L; Blood Urea Nitrogen 31 mg/dL (9-20); Calcium 9.2 mg/dL (8.4-10.2); Carbon Dioxide 29 mmol/L (22-30); Chloride 105 mmol/L (98-107); Glucose 106 mg/dL (74-99); Magnesium 2.3 mg/dL (1.6-2.3); Non-African American GFR(CKD) 69 (>60 ml/min/1.73 sqM); Potassium 4.7 mmol/L (3.5-5.1); Sodium 140 mmol/L (137-145)
--- NOTE | 2024-04-18 12:27 | P.CRDCN ---
History of Present Illness History of present illness: HISTORY OF PRESENT ILLNESS: This is a 74-year-old male with a past medical history significant for Parkinson's disease, hyperlipidemia, and former nicotine dependence. Patient follows with a cell plasterer in [place]. We have been asked to see the patient in consultation for syncope. Patient examined at the bedside in the ER. Family reports he had an episode in January where he passed out for 45 minutes. She states his heart rate was in the 30s at that time and he required medication to bring up his heart rate. Family states he was working in an attic that was about 130 degrees and was thought to be dehydrated at that time. Patient initially presented to the hospital yesterday after having a syncopal episode at [employer]. He left AMA. Patient notified his cell plasterer and she encouraged him to come back to the hospital for further evaluation. Family states he was out for about 8 minutes. He states he was standing up and sitting down a few times during mass. Patient denies any chest pain or pressure. Denies any shortness of breath. Denies any dizziness or lightheadedness. No significant bradycardia noted on telemetry. DIAGNOSTICS: - EKG reveals sinus mechanism with baseline artifact - Chest xray negative for acute process - Laboratory data: WBC 6.8. Hemoglobin 14.3. Platelet count 115. Sodium 140. Potassium 4.7. BUN 31. Creatinine 1.06. Troponin negative x 1. - Current home cardiac medications include Lipitor 40 mg at night and Xarelto 20 mg at night -No previous echocardiogram, stress test, or cardiac catheterization available in EMR for review REVIEW OF SYSTEMS: At the time of my exam: CONSTITUTIONAL: Denies fever or chills. HEENT: Denies blurred vision, vision changes, or eye pain. Denies hemoptysis CARDIOVASCULAR: Denies chest pain. Denies orthopnea. Denies PND. Denies palpitations RESPIRATORY: Denies shortness of breath. GASTROINTESTINAL: Denies abdominal pain. Denies nausea or vomiting. HEMATOLOGIC: Denies bleeding disorders. GENITOURINARY: Denies any blood in urine. SKIN: Denies pruitis. Denies rash. PHYSICAL EXAM: VITAL SIGNS: Reviewed. GENERAL: Well-developed in no acute distress. HEENT: Head is normocephalic. Pupils are equal, round. Sclerae anicteric. Mucous membranes of the mouth are moist. Neck supple. No JVD or thyromegaly LUNGS: Respirations even and unlabored. Lungs essentially clear to auscultation bilaterally. HEART: Regular rate and rhythm. S1 and S2 heard. ABDOMEN: Soft. Nondistended. Nontender. EXTREMITIES: Normal range of motion. No clubbing or cyanosis. Peripheral pulses intact. No lower extremity edema NEUROLOGIC: Awake and alert. Oriented x 3. ASSESSMENT: Syncope, likely vasovagal Episode of syncope, January 2024, likely secondary to dehydration and extreme heat Reported bradycardia, heart rate currently 50s, sinus mechanism, no telemetry tracings with significant bradycardia noted Coronary artery calcifications, per CT scan Hyperlipidemia Parkinson's disease Former nicotine dependence Paroxysmal atrial fibrillation, on Xarelto outpatient PLAN: Obtain 2D echo to assess cardiac structure and function Obtain additional troponin Continue telemetry monitoring to assess for any arrhythmias or significant bradycardia Check orthostatic blood pressures Patient to receive 1 week event monitor at the time of discharge Patient may benefit from loop recorder insertion in the future Patient may be discharged home today from a cardiac standpoint and follow-up with his primary cell plasterer in [place] Nurse practitioner note has been reviewed by physician. Signing provider agrees with the documented findings, assessment, and plan of care documented by [employer] SCREED OPERATOR as a scribe. Past Medical History Past Medical History: Hyperlipidemia, Musculoskeletal Disorder, Neurologic Disorder Additional Past Medical History / Comment(s): parkensons hypotension History of Any Multi-Drug Resistant Organisms: None Reported Past Surgical History: Orthopedic Surgery Additional Past Surgical History / Comment(s): oral surg foot Past Anesthesia/Blood Transfusion Reactions: No Reported Reaction, Motion Sickness Past Psychological History: No Psychological Hx Reported Past Alcohol Use History: Occasional Past Drug Use History: None Reported - Past Family History Father History Unknown: Yes Mother Family Medical History: No Reported History Additional Family Medical History / Comment(s): Mother is healthy and 87yrs old. Medications and Allergies Home Medications Medication Instructions Recorded Confirmed Type Carbidopa-Levodopa 25-100 mg 1.5 tab PO TID 01/23/19 04/17/24 History [Sinemet 25-100 mg] rOPINIRole HCL [Requip] 2 mg PO TID 01/23/19 04/17/24 History Atorvastatin [Lipitor] 40 mg PO HS 04/16/24 04/17/24 History Melatonin 5 mg PO HS 04/16/24 04/17/24 History Rivaroxaban [Xarelto] 20 mg PO HS 04/16/24 04/17/24 History Sennosides/Docusate Sodium 2 tab PO HS 04/16/24 04/17/24 History [Senna-S 8.6-50 mg Tablet] Allergies Allergy/AdvReac Type Severity Reaction Status Date / Time Latex, Natural Rubber Allergy Rash/Hives Verified 04/17/24 15:15 Penicillins Allergy Rash/Hives Verified 04/17/24 15:15 Physical Exam Vitals: Vital Signs Temp Pulse Pulse Resp BP Pulse Ox 04/18/24 07:55 51 L 14 159/107 98 04/18/24 04:44 51 L 16 162/108 98 04/18/24 03:01 50 L 16 189/104 04/18/24 02:00 56 L 18 174/96 98 04/18/24 01:00 56 L 18 174/96 98 04/18/24 00:00 55 L 18 165/94 99 04/17/24 23:09 52 L 16 145/82 98 04/17/24 19:46 56 L 16 116/69 98 04/17/24 18:08 51 L 18 135/84 97 04/17/24 16:20 61 18 106/71 99 04/17/24 15:00 51 L 04/17/24 14:43 98 F 62 16 102/44 97 Results 04/17/24 15:08 04/17/24 16:18 Cardiac Enzymes 04/17/24 Range/Units 15:08 Troponin I <0.012 (0.000-0.034) ng/mL CBC 04/17/24 Range/Units 15:08 WBC 6.8 (3.8-10.6) k/uL RBC 4.37 (4.30-5.90) m/uL Hgb 14.3 (13.0-17.5) gm/dL Hct 42.0 (39.0-53.0) % Plt Count 115 L (150-450) k/uL Comprehensive Metabolic Panel 04/17/24 Range/Units 16:18 Sodium 140 (137-145) mmol/L Potassium 4.7 (3.5-5.1) mmol/L Chloride 105 (98-107) mmol/L Carbon Dioxide 29 (22-30) mmol/L BUN 31 H (9-20) mg/dL Creatinine 1.06 (0.66-1.25) mg/dL Glucose 106 H (74-99) mg/dL Calcium 9.2 (8.4-10.2) mg/dL Current Medications Generic Name Dose Route Start Last Admin Trade Name Freq PRN Reason Stop Dose Admin Sodium Chloride 1,000 mls @ 20 mls/hr 04/17/24 15:45 04/17/24 16:14 Saline 0.9% IV 20 mls/hr .Q24H TASHA Administration Naloxone HCl 0.2 mg 04/17/24 15:39 Naloxone 0.4 Mg/Ml 1 Ml Vial IV Q2M PRN Opioid Reversal 04/17/24 15:08 04/17/24 16:18
[2024-04-18] MEDS: CARBIDOPA-LEVODOPA 25-100 MG 1 EACH TAB PO SCH (12:30)
--- NOTE | 2024-04-18 15:01 | P.HPIM ---
History of Present Illness H&P Date: 04/18/24 This is a pleasant 74-year-old male with medical history significant for hyperlipidemia, musculoskeletal disorder, concerns, former smoker was recently diagnosed with atrial fibrillation and has been newly started on Xarelto by his primary battery mechanic. Patient came into the hospital Wednesday after having a syncopal episode during buddhism where he was unconscious for 8 minutes. Patient states that the episode occurred during the part of [employer] mass where he was sitting and standing a few times in a row became dizzy and lightheaded. Patient was brought to the ER he waited in the emergency room and left AGAINST MEDICAL ADVICE patient did notify his main battery mechanic and recommended that he come back to the ER for further evaluation. Patient this time is not reporting of any dizziness or lightheadedness he is not have any chest discomfort or palpitations. He would like to go home today. His heart rate has been maintained in normal sinus rhythm in the 60s with lows in the 50s. He has had a syncopal episode in the past and per the at the bedside states that he recently had an event monitor placed within the last 2 weeks and was found to be in atrial fibrillation at that time. Blood work on admission is essentially unremarkable patient's D-dimer is negative his troponin levels negative x 3 his TH level is 1.270. Chest x-ray reveals no acute cardiopulmonary process. EKG r eveals sinus rhythm heart rate of [address] or T wave changes. REVIEW OF SYSTEMS: CONSTITUTIONAL: No fever, no malaise, no fatigue. HEENT: No recent visual problems or hearing problems. Denied any sore throat. CARDIOVASCULAR: No chest pain, orthopnea, PND, no palpitations, no syncope. PULMONARY: No shortness of breath, no cough, no hemoptysis. GASTROINTESTINAL: No diarrhea, no nausea, no vomiting, no abdominal pain. NEUROLOGICAL: No headaches, no weakness, no numbness. HEMATOLOGICAL: Denies any bleeding or petechiae. GENITOURINARY: Denies any burning micturition, frequency, or urgency. MUSCULOSKELETAL/RHEUMATOLOGICAL: Denies any joint pain, swelling, or any muscle pain. ENDOCRINE: Denies any polyuria or polydipsia. The rest of the 14-point review of systems is negative. PHYSICAL EXAMINATION: GENERAL: The patient is alert and oriented x3, not in any acute distress. Well developed, well nourished. HEENT: Pupils are round and equally reacting to light. EOMI. No scleral icterus. No conjunctival pallor. Normocephalic, atraumatic. No pharyngeal erythema. No th yromegaly. CARDIOVASCULAR: S1 and S2 present. No murmurs, rubs, or gallops. PULMONARY: Chest is clear to auscultation, no wheezing or crackles. ABDOMEN: Soft, nontender, nondistended, normoactive bowel sounds. No palpable organomegaly. MUSCULOSKELETAL: No joint swelling or deformity. EXTREMITIES: No cyanosis, clubbing, or pedal edema. NEUROLOGICAL: Gross neurological examination did not reveal any focal deficits. SKIN: No rashes. Assessment Syncope, likely vasovagal Episode of syncope, January 2024, likely secondary to dehydration and extreme heat Reported bradycardia, heart rate currently 50s, sinus mechanism, no telemetry tracings with significant bradycardia noted recently wore an event monitor outpatient where he was found to be in paroxysmal atrial fibrillation. Paroxysmal atrial fibrillation, on Xarelto outpatient Coronary artery calcifications, per CT scan Hyperlipidemia Parkinson's disease Former nicotine dependence GI prophylaxis DVT prophyalxis on xarelto as mentioned Full Code Plan Resume home medications Echocardiogram ordered and pending Patient to resume all same home medications and advised to see his main battery mechanic in the office on discharge. Event monitor to be placed and follow up with Dr. Crispin mayberry. The impression and plan of care has been dictated by Carleen Escobar Nurse Practitioner as directed. Dr. Devon MD I have performed a history and physical examination and medical decision making of this patient, discussed the same with the dictator, and agree with the dictators assessment and plan as written, documented as a scribe. Based on total visit time, I have performed more than 50% of this visit. Past Medical History Past Medical History: Hyperlipidemia, Musculoskeletal Disorder, Neurologic Disorder Additional Past Medical History / Comment(s): parkensons hypotension History of Any Multi-Drug Resistant Organisms: None Reported Past Surgical History: Orthopedic Surgery Additional Past Surgical History / Comment(s): oral surg foot Past Anesthesia/Blood Transfusion Reactions: No Reported Reaction, Motion Sickness Past Psychological History: No Psychological Hx Reported Past Alcohol Use History: Occasional Past Drug Use History: None Reported - Past Family History Father History Unknown: Yes Mother Family Medical History: No Reported History Additional Family Medical History / Comment(s): Mother is healthy and 87yrs old. Medications and Allergies Home Medications Medication Instructions Recorded Confirmed Type Carbidopa-Levodopa 25-100 mg 1.5 tab PO TID 01/23/19 04/17/24 History [Sinemet 25-100 mg] rOPINIRole HCL [Requip] 2 mg PO TID 01/23/19 04/17/24 History Atorvastatin [Lipitor] 40 mg PO HS 04/16/24 04/17/24 History Melatonin 5 mg PO HS 04/16/24 04/17/24 History Rivaroxaban [Xarelto] 20 mg PO HS 04/16/24 04/17/24 History Sennosides/Docusate Sodium 2 tab PO HS 04/16/24 04/17/24 History [Senna-S 8.6-50 mg Tablet] Allergies Allergy/AdvReac Type Severity Reaction Status Date / Time Latex, Natural Rubber Allergy Rash/Hives Verified 04/17/24 15:15 Penicillins Allergy Rash/Hives Verified 04/17/24 15:15 Physical Exam Vitals: Vital Signs Temp Pulse Pulse Resp BP Pulse Ox 04/18/24 10:08 52 L 18 107/86 95 04/18/24 08:30 129/96 04/18/24 07:55 51 L 14 159/107 98 04/18/24 04:44 51 L 16 162/108 98 04/18/24 03:01 50 L 16 189/104 04/18/24 02:00 56 L 18 174/96 98 04/18/24 01:00 56 L 18 174/96 98 04/18/24 00:00 55 L 18 165/94 99 04/17/24 23:09 52 L 16 145/82 98 04/17/24 19:46 56 L 16 116/69 98 04/17/24 18:08 51 L 18 135/84 97 04/17/24 16:20 61 18 106/71 99 04/17/24 15:00 51 L 04/17/24 14:43 98 F 62 16 102/44 97 Results CBC & Chem 7: 04/17/24 15:08 04/17/24 16:18 Labs: Abnormal Lab Results - Last 24 Hours (Table) 04/17/24 04/17/24 Range/Units 15:08 16:18 Plt Count 115 L (150-450) k/uL BUN 31 H (9-20) mg/dL Glucose 106 H (74-99) mg/dL Assessment and Plan Time with Patient: Less than 30
[2024-04-18 16:45] VITALS: BP 150/83; PULSE 60; RESP 20; TEMP 97.9
[2024-04-18] MEDS ORDERED: MELATONIN 5 MG TABLET PO SCH (21:00)
[2024-04-18] MEDS ORDERED: ATORVASTATIN 40 MG TAB PO SCH (21:00)
[2024-04-18] MEDS ORDERED: RIVAROXABAN 20 MG TAB PO SCH (21:00)
[2024-04-18] MEDS ORDERED: SENNOSIDES-DOCUSATE SODIUM 1 EACH TAB PO SCH (21:00)
--- NOTE | 2024-04-19 12:09 | CA ---
Transthoracic Echo Report Name: Raymond Garrison Age: 74 Gender: M : 1950 Exam Date: 04/18/2024 15:34 Exam Location: [facility] Ht (in): 69 Wt (lb): 184 Ordering Physician: Paty Guerrero Attending/Referring Phys: [id number], Yolanda Parimutuel Ticket Checker Lashaun Huitron RDCS Procedure CPT: Indications: Syncope Cardiac Hx: Technical Quality: Fair Contrast 1: Total Dose (mL): Contrast 2: Total Dose (mL): MEASUREMENTS (Male / Female) Normal Values 2D ECHO LV Diastolic Diameter PLAX 4.4 cm 4.2 - 5.9 / 3.9 - 5.3 cm LV Systolic Diameter PLAX 3.0 cm IVS Diastolic Thickness 1.3 cm 0.6 - 1.0 / 0.6 - 0.9 cm LVPW Diastolic Thickness 1.2 cm 0.6 - 1.0 / 0.6 - 0.9 cm LV Relative Wall Thickness 0.6 RV Internal Dim ED PLAX 2.8 cm LA Systolic Diameter LX 4.1 cm 3.0 - 4.0 / 2.7 - 3.8 cm LV Diastolic Volume MOD BP 59.4 cm??? 67 - 155 / 56 - 104 cm??? LV Systolic Volume MOD BP 26.8 cm??? 22 - 58 / 19 - 49 cm??? LV Ejection Fraction MOD BP 54.8 % >= 55 % LV Cardiac Index MOD BP 1329.0 cm???/min???m??? LV Diastolic Volume MOD 4C 60.5 cm??? LV Systolic Volume MOD 4C 27.5 cm??? LV Ejection Fraction MOD 4C 54.5 % LV Cardiac Index MOD 4C 1347.3 cm???/min???m??? LV Diastolic Length 4C 6.9 cm LV Systolic Length 4C 6.7 cm LV Diastolic Volume MOD 2C 51.7 cm??? LV Systolic Volume MOD 2C 21.4 cm??? LV Ejection Fraction MOD 2C 58.7 % LV Cardiac Index MOD 2C 1241.0 cm???/min???m??? LV Diastolic Length 2C 6.1 cm LV Systolic Length 2C 5.4 cm LA Volume 38.3 cm??? 18 - 58 / 22 - 52 cm??? LA Volume Index 18.9 cm???/m??? 16 - 28 cm???/m??? M-MODE Aortic Root Diameter MM 3.5 cm LA Systolic Diameter MM 3.6 cm LA Ao Ratio MM 1.0 AV Cusp Separation MM 2.0 cm DOPPLER AI Peak Velocity 237.8 cm/s AI Peak Gradient 22.6 mmHg AI Pressure Half Time 1016.5 ms MV Area PHT 2.2 cm??? Mitral E Point Velocity 76.5 cm/s Mitral A Point Velocity 95.2 cm/s Mitral E to A Ratio 0.8 MV Deceleration Time 346.5 ms TR Peak Velocity 257.9 cm/s TR Peak Gradient 26.6 mmHg Right Ventricular Systolic Press 30.9 mmHg FINDINGS Left Ventricle Left ventricular ejection fraction is estimated at 55-60%. Mildly increased septal wall thickness. Left ventricular cavity size normal. No obvious regional wall motion abnormalities. Right Ventricle Mild right ventricular dilatation. . Right ventricular systolic pressure within normal limits. Right Atrium Mild right atrial dilatation. Left Atrium Normal left atrial size. Mitral Valve Structurally normal mitral valve. Mild mitral regurgitation. No mitral stenosis. Aortic Valve Trileaflet aortic valve. Mild aortic regurgitation. Diffuse thickening (sclerosis) of the aortic valve cusps without reduced excursion. Tricuspid Valve Structurally normal tricuspid valve. Mild tricuspid regurgitation. No tricuspid stenosis. Pulmonic Valve Structurally normal pulmonic valve. Trace pulmonic regurgitation. No pulmonic stenosis. Pericardium No pericardial or pleural effusion. Aorta Normal size aortic root and proximal ascending aorta. CONCLUSIONS Left ventricular ejection fraction 55-60% Mildly increased left ventricular wall thickness RVSP 31 Mild aortic regurgitation Mild tricuspid regurgitation No pericardial effusion Previewed by: Dr. Wade Kruger DO (Electronically Signed) Final Date: 19 April 2024 12:08
--- NOTE | 2024-04-21 16:11 | P.DS ---
Providers Date of admission: 04/17/24 15:40 Attending physician: Yary Dodd Consults: 04/17/24 15:39 Consult Physician Routine Consulting Provider: Wade Kruger Consult Reason/Comments: syncope Do you want consulting provider notified?: Yes Primary care physician: Edward Flores MD Hospital Course: Final Diagnosis Syncope, likely vasovagal Episode of syncope, January 2024, likely secondary to dehydration and extreme heat Reported bradycardia, heart rate currently 50s, sinus mechanism, no telemetry tracings with significant bradycardia noted recently wore an event monitor outpatient where he was found to be in paroxysmal atrial fibrillation. Paroxysmal atrial fibrillation, on Xarelto outpatient Coronary artery calcifications, per CT scan Hyperlipidemia Parkinson's disease Former nicotine dependence Discharge Disposition Patient is stable for discharge from the ER. [place] the syncope was vasovagal. He was evaluated by cardiology and cleared for DC home. He had an event monitor placed prior to discharge. Hospital Course This is a pleasant 74-year-old male with medical history significant for hyperlipidemia, musculoskeletal disorder, concerns, former smoker was recently diagnosed with atrial fibrillation and has been newly started on Xarelto by his primary linen clerk. Patient came into the hospital Wednesday after having a syncopal episode during evangelical where he was unconscious for 8 minutes. Patient states that the episode occurred during the part of [employer] mass where he was sitting and standing a few times in a row became dizzy and lightheaded. Patient was brought to the ER he waited in the emergency room and left AGAINST MEDICAL ADVICE patient did notify his main linen clerk and recommended that he come back to the ER for further evaluation. Patient this time is not reporting of any dizziness or lightheadedness he is not have any chest discomfort or palpitations. He would like to go home today. His heart rate has been maintained in normal sinus rhythm in the 60s with lows in the 50s. He has had a syncopal episode in the past and per the at the bedside states that he recently had an event monitor placed within the last 2 weeks and was found to be in atrial fibrillation at that time. Blood work on admission is essentially unremarkable patient's D-dimer is negative his troponin levels negative x 3 his TH level is 1.270. Chest x-ray reveals no acute cardiopulmonary process. EKG reveals sinus rhythm heart rate of [address] or T wave changes. He was evaluated by cardiology doing well no chest pain no shortness of breath. Will have an event monitor placed and cleared for DC home. Please see medication reconciliation for a list of current medications. Thank you for allowing us to participate in the care of this patient. The impression and plan of care has been dictated by Carleen Escobar, Nurse Practitioner as directed. Dr. Devon MD I have performed a history and physical examination and medical decision making of this patient, discussed the same with the dictator, and agree with the dictators assessment and plan as written, documented as a scribe. Based on total visit time, I have performed more than 50% of this visit. Patient Condition at Discharge: Fair Plan - Discharge Summary New Discharge Prescriptions: Continue rOPINIRole HCL [Requip] 2 mg PO TID Carbidopa-Levodopa 25-100 mg [Sinemet 25-100 mg] 1.5 tab PO TID Rivaroxaban [Xarelto] 20 mg PO HS Atorvastatin [Lipitor] 40 mg PO HS Sennosides/Docusate Sodium [Senna-S 8.6-50 mg Tablet] 2 tab PO HS Melatonin 5 mg PO HS Discharge Medication List Carbidopa-Levodopa 25-100 mg [Sinemet 25-100 mg] 1.5 tab PO TID 01/23/19 [History] rOPINIRole HCL [Requip] 2 mg PO TID 01/23/19 [History] Atorvastatin [Lipitor] 40 mg PO HS 04/16/24 [History] Melatonin 5 mg PO HS 04/16/24 [History] Rivaroxaban [Xarelto] 20 mg PO HS 04/16/24 [History] Sennosides/Docusate Sodium [Senna-S 8.6-50 mg Tablet] 2 tab PO HS 04/16/24 [History] Follow up Appointment(s)/Referral(s): Edward Flores MD [Primary Care Provider] - 1-2 days Tre Roa MD [REFERRING] - 1 Week Activity/Diet/Wound Care/Special Instructions: Patient may discharge home after echocardiogram has been taken and event monitor has been placed Discharge Disposition: HOME SELF-CARE
--- NOTE | 2024-06-02 11:44 | EST ---
EXERCISE STRESS Patient was monitored between April 20 and 26 April 2024. The rhythm strip revealed a sinus mechanism. The average rate 62 beats per minute, minimum 44, maximum 119 beats per minute. Ventricular ectopic activity was present in form of rare single PVCs. No atrial fibrillation was noted. No significant pauses were noted. EVERARDO / JUAN: [id number] /
== END 2024-04-18 16:49 | disposition home or self-care (01) ==
LOC: EC 14:37 → 6NMEDSUR 15:40
PROVIDERS: ADMIT Hospitalist; ATTEND Hospitalist
DX: R55 Syncope and collapse (principal); Z53.29 Procedure and treatment not carried out because of patient's decision for other reasons; R00.1 Bradycardia, unspecified; I25.10 Atherosclerotic heart disease of native coronary artery without angina pectoris; I48.0 Paroxysmal atrial fibrillation; E78.5 Hyperlipidemia, unspecified; G20.A1 Parkinson's disease without dyskinesia, without mention of fluctuations; Z87.891 Personal history of nicotine dependence; Z79.01 Long term (current) use of anticoagulants; Z79.899 Other long term (current) drug therapy; Z88.0 Allergy status to penicillin; Z91.040 Latex allergy status
CPT/HCPCS: 36415; 71046; 80048; 83735; 84443; 84484; 85025; 85379; 93005; 93270; 93306; 99285

== ENCOUNTER 2024-05-14 10:55 | Inpatient (IN) | payer MEDICARE, BC ==
--- NOTE | 2024-05-14 11:13 | ED ---
General Adult HPI - General Chief complaint: Syncope Stated complaint: syncope Time Seen by Provider: 05/14/24 10:59 Source: patient, EMS, RN notes reviewed Mode of arrival: EMS Limitations: no limitations - History of Present Illness Initial comments: Patient is a 74-year-old male presenting to the emergency department with syncopal episode. Patient was at [employer]. Patient became very drowsy and unresponsive for around 7 minutes. Patient did have some discomfort in his right posterior shoulder which she has had previously with these episodes. Willie rodríguez has had a few similar episodes similar to this previously. Patient currently symptom-free. No chest pain. No dyspnea. Patient did have event monitor placed recently secondary to these episodes - Related Data Home Medications Medication Instructions Recorded Confirmed Carbidopa-Levodopa 25-100 mg 1.5 tab PO TID 01/23/19 04/17/24 [Sinemet 25-100 mg] rOPINIRole HCL [Requip] 2 mg PO TID 01/23/19 04/17/24 Atorvastatin [Lipitor] 40 mg PO HS 04/16/24 04/17/24 Melatonin 5 mg PO HS 04/16/24 04/17/24 Rivaroxaban [Xarelto] 20 mg PO HS 04/16/24 04/17/24 Sennosides/Docusate Sodium 2 tab PO HS 04/16/24 04/17/24 [Senna-S 8.6-50 mg Tablet] Allergies Allergy/AdvReac Type Severity Reaction Status Date / Time Latex, Natural Rubber Allergy Rash/Hives Verified 05/14/24 11:02 Penicillins Allergy Rash/Hives Verified 05/14/24 11:02 Review of Systems ROS Statement: Those systems with pertinent positive or pertinent negative responses have been documented in the HPI. ROS Other: All systems not noted in ROS Statement are negative. Constitutional: Denies: fever Eyes: Denies: eye pain ENT: Denies: ear pain Respiratory: Denies: dyspnea Cardiovascular: Denies: chest pain Endocrine: Denies: fatigue Gastrointestinal: Denies: abdominal pain Musculoskeletal: Denies: back pain Past Medical History Past Medical History: Hyperlipidemia, Musculoskeletal Disorder, Neurologic Disorder Additional Past Medical History / Comment(s): parkensons hypotension History of Any Multi-Drug Resistant Organisms: None Reported Past Surgical History: Orthopedic Surgery Additional Past Surgical History / Comment(s): oral surg foot Past Anesthesia/Blood Transfusion Reactions: No Reported Reaction, Motion Sickness Past Psychological History: No Psychological Hx Reported Past Alcohol Use History: Occasional Past Drug Use History: None Reported - Past Family History Father History Unknown: Yes Mother Family Medical History: No Reported History Additional Family Medical History / Comment(s): Mother is healthy and 87yrs old. General Exam Limitations: no limitations General appearance: alert, in no apparent distress Head exam: Present: normocephalic Eye exam: Present: normal appearance Neck exam: Present: normal inspection Respiratory exam: Present: normal lung sounds bilaterally Cardiovascular Exam: Present: bradycardia, normal heart sounds Expanded Peripheral pulses: 2+: Radial (R), Radial (L), Posterior Tibialis (R), Posterior Tibialis (L) GI/Abdominal exam: Present: soft. Absent: tenderness Extremities exam: Present: normal inspection. Absent: pedal edema, calf tenderness Neurological exam: Present: alert, oriented X3, CN II-XII intact. Absent: motor sensory deficit Expanded Neurological exam: Present: protecting the airway Speech: Present: fluid speech Cranial nerves: EOM's Intact: Normal Motor strength exam: RUE: 5, LUE: 5, RLE: 5, LLE: 5 Eye Response: (4) open spontaneously Motor Response: (6) obeys commands Verbal Response: (5) oriented Psychiatric exam: Present: normal affect, normal mood Course Vital Signs 05/14/24 10:58 Temperature 97.7 F Pulse Rate 46 L Respiratory 16 Rate Blood Pressure 114/69 O2 Sat by Pulse 99 Oximetry EKG Findings - EKG Results: EKG: interpreted by ERMD, sinus rhythm, normal axis, normal QRS, normal ST/T EKG shows: bradycardia Medical Decision Making - Medical Decision Making Was pt. sent in by a medical professional or institution (, PA, [employer], urgent care, hospital, or alf...) When possible be specific @ -No Did you speak to anyone other than the patient for history (EMS, parent, family, police, friend...)? What history was obtained from this source @ -Family is present and provides history of this syncopal episode as well as recent history Did you review nursing and triage notes (agree or disagree)? Why? @ -I reviewed and agree with nursing and triage notes Were old charts reviewed (outside hosp., previous admission, EMS record, old EKG, old radiological studies, urgent care reports/EKG's, alf records)? Report findings @ -Previous admission reviewed Differential Diagnosis (chest pain, altered mental status, abdominal pain women, abdominal pain men, vaginal bleeding, weakness, fever, dyspnea, syncope, headache, dizziness, GI bleed, back pain, seizure, CVA, palpatations, mental health, musculoskeletal)? @ -MDM differential sink differential Syncope: Valvular disease, hypertrophic cardiomyopathy, pulmonary embolism, tamponade, tachycardia, bradycardia, NC, hypovolemia, hemorrhage, dissection, anemia, intracranial hemorrhage, seizure, hypoglycemia, carbon monoxide poisoning, this is not meant to be an all-inclusive list. EKG interpreted by me (3pts min.). @ -As above X-rays interpreted by me (1pt min.). @ -Chest x-ray shows no acute process CT interpreted by me (1pt min.). @ -None done U/S interpreted by me (1pt. min.). @ -None done What testing was considered but not performed or refused? (CT, X-rays, U/S, labs)? Why? @ -None What meds were considered but not given or refused? Why? @ -None Did you discuss the management of the patient with other professionals (pr ofessionals i.e. , PA, [employer], lab, RT, psych nurse, social media executive, information systems security developer, teacher, field artillery officer, manager search engine)? Give summary @ -Case was discussed with Dr. Ibarra who will admit covering hospital call Was smoking cessation discussed for >3mins.? @ -No Was critical care preformed (if so, how long)? @ -No Were there social determinants of health that impacted care today? How? (Homelessness, low income, unemployed, alcoholism, drug addiction, transportation, low edu. Level, literacy, decrease access to med. care, [facility], rehab)? @ -No Was there de-escalation of care discussed even if they declined (Discuss DNR or withdrawal of care, Hospice)? DNR status @ -No What co-morbidities impacted this encounter? (DM, HTN, Smoking, COPD, CAD, Cancer, CVA, ARF, Chemo, Hep., AIDS, mental health diagnosis, sleep apnea, morbid obesity)? @ -History of syncopal episode Was patient admitted / discharged? Hospital course, mention meds given and route, prescriptions, significant lab abnormalities, going to OR and other pertinent info. @ -Patient presents with syncopal episode lasting up to 7 minutes. Workup in emergency department unremarkable. Patient does have bradycardia. Patient will be admitted with cardiac consult, admission orders written. Undiagnosed new problem with uncertain prognosis? @ -No Drug Therapy requiring intensive monitoring for toxicity (Heparin, Nitro, Insulin, Cardizem)? @ -No Were any procedures done? @ -No Diagnosis/symptom? @ -Syncope Acute, or Chronic, or Acute on Chronic? @ -Acute Uncomplicated (without systemic symptoms) or Complicated (systemic symptoms)? @ -Default Side effects of treatment? @ -No Exacerbation, Progression, or Severe Exacerbation? @ -No Poses a threat to life or bodily function? How? (Chest pain, USA, NC, pneumonia, PE, COPD, DKA, ARF, appy, cholecystitis, CVA, Diverticulitis, Homicidal, Suicidal, threat to staff... and all critical care pts) @ -Threat to cardiac function - Lab Data Result diagrams: 05/14/24 11:28 05/14/24 11:28 Lab Results 05/14/24 05/14/24 05/14/24 Range/Units 11:28 11:28 11:28 WBC 5.0 (3.8-10.6) k/uL RBC 4.17 L (4.30-5.90) m/uL Hgb 13.2 (13.0-17.5) gm/dL Hct 40.1 (39.0-53.0) % MCV 96.1 (80.0-100.0) fL MCH 31.7 (25.0-35.0) pg MCHC 33.0 (31.0-37.0) g/dL RDW 12.6 (11.5-15.5) % Plt Count 139 L (150-450) k/uL MPV 9.3 Neutrophils % 69 % Lymphocytes % 18 % Monocytes % 7 % Eosinophils % 3 % Basophils % 1 % Neutrophils # 3.5 (1.3-7.7) k/uL Lymphocytes # 0.9 L (1.0-4.8) k/uL Monocytes # 0.3 (0-1.0) k/uL Eosinophils # 0.2 (0-0.7) k/uL Basophils # 0.0 (0-0.2) k/uL Sodium 139 (137-145) mmol/L Potassium 4.6 (3.5-5.1) mmol/L Chloride 101 (98-107) mmol/L Carbon Dioxide 33 H (22-30) mmol/L Anion Gap 5 mmol/L BUN 25 H (9-20) mg/dL Creatinine 1.30 H (0.66-1.25) mg/dL Est GFR (CKD-EPI)AfAm 62 (>60 ml/min/1.73 sqM) Est GFR (CKD-EPI)NonAf 54 (>60 ml/min/1.73 sqM) Glucose 91 (74-99) mg/dL Calcium 9.6 (8.4-10.2) mg/dL Magnesium 2.2 (1.6-2.3) mg/dL Total Bilirubin 1.0 (0.2-1.3) mg/dL AST 30 (17-59) U/L ALT 8 (4-49) U/L Alkaline Phosphatase 43 (38-126) U/L Troponin I <0.012 (0.000-0.034) ng/mL Total Protein 6.5 (6.3-8.2) g/dL Albumin 4.0 (3.5-5.0) g/dL Disposition Clinical Impression: Syncope Disposition: ADMITTED IP TO THIS HOSP Is patient prescribed a controlled substance at d/c from ED?: No Referrals: Nonstaff,Physician [Primary Care Provider] - 1-2 days Time of Disposition: 12:57
[2024-05-14] MEDS: SODIUM CHLORIDE 0.9% 1,000 ML IV STA (11:36)
[2024-05-14 11:37] LABS: Basophils % (A) 1 %; Eosinophils # (A) 0.2 k/uL (0-0.7); Eosinophils % (A) 3 %; HCT 40.1 % (39.0-53.0); HGB 13.2 gm/dL (13.0-17.5); Lymphocytes # (A) 0.9 k/uL (1.0-4.8); Lymphocytes % (A) 18 %; MCH 31.7 pg (25.0-35.0); MCV 96.1 fL (80.0-100.0); Mean Platelet Volume 9.3; Monocytes # (A) 0.3 k/uL (0-1.0); Monocytes % (A) 7 %; Neutrophils # (A) 3.5 k/uL (1.3-7.7); Neutrophils % (A) 69 %; Platelet Count 139 k/uL (150-450); RBC 4.17 m/uL (4.30-5.90); RDW 12.6 % (11.5-15.5)
[2024-05-14 11:55] LABS: ALT 8 U/L (4-49); AST 30 U/L (17-59); African American GFR (CKD) 62 (>60 ml/min/1.73 sqM); Alkaline Phosphatase 43 U/L (38-126); Anion Gap 5 mmol/L; Blood Urea Nitrogen 25 mg/dL (9-20); Calcium 9.6 mg/dL (8.4-10.2); Carbon Dioxide 33 mmol/L (22-30); Chloride 101 mmol/L (98-107); Glucose 91 mg/dL (74-99); Magnesium 2.2 mg/dL (1.6-2.3); Non-African American GFR(CKD) 54 (>60 ml/min/1.73 sqM); Potassium 4.6 mmol/L (3.5-5.1); Sodium 139 mmol/L (137-145); Total Protein 6.5 g/dL (6.3-8.2)
--- NOTE | 2024-05-14 12:04 | XR ---
EXAMINATION TYPE: XR chest 2V DATE OF EXAM: 05/14/2024 COMPARISON: 04/17/2024 INDICATION: Syncope TECHNIQUE: Frontal and lateral views of the chest are obtained. FINDINGS: The heart size is normal. The pulmonary vasculature is normal. The lungs are clear. IMPRESSION: 1. No acute pulmonary process. [facility], , 05/14/2024 12:02 PM
[2024-05-14] MEDS ORDERED: NALOXONE 0.4 MG/ML 1 ML VIAL IV PRN (12:57)
[2024-05-14 13:16] LABS: INR 1.3 (<1.2); Prothrombin Time 13.9 sec (10.0-12.5)
[2024-05-14] MEDS: CARBIDOPA-LEVODOPA 25-100 MG 1 EACH TAB PO SCH (15:05)
--- NOTE | 2024-05-14 15:09 | P.HPIM ---
History of Present Illness H&P Date: 05/14/24 History of Presenting Illness: Patient is a very pleasant 74-year-old male with a past medical history of Parkinson's disease, atrial fibrillation on Xarelto, and hyperlipidemia. He presented to the emergency department after a witnessed syncopal episode. Patient reports he was sitting in [employer] and got a pain in the back of his neck up into his head accompanied by some dizziness/lightheadedness and the next thing he remembers is waking up. Patient's significant other at bedside reports he just slumped over and was completely unresponsive for approximately 7 minutes and when he awoke he was drowsy but oriented and reported pain in the back of his neck and right shoulder. No involuntary loss of bowel or bladder. Family denies patient having any convulsing or shaking movements and denies him hitting his head during syncopal episode. Patient and family at bedside reports this is the fourth syncopal episode patient has had in the last year and that he underwent evaluation at [place] where he had a loop recorder placed. Patient currently denies having any headache, vision or hearing, tinnitus, chest pain, palpitations, shortness of breath, or experiencing any numbness/tingling/weakness/swelling in his extremities. On arrival to our [facility], patient underwent evaluation in the emergency department. Vital signs upon arrival show blood pressure 114/69, heart rate 46, respiratory rate 16, temp 97.7 F, and SpO2 of 99% on room air. EKG completed showing sinus bradycardia at 48 bpm with no significant T wave or ST abnormalities showing no signs of acute ischemia upon personal review and interpretation. Chest x-ray negative for acute cardiopulmonary process. Labs were completed and reviewed. CBC showing thrombocytopenia with platelet count of 139. Coagulation profile showing elevated PT of 13.9, INR 1.3, and PTT of 33.0. BMP showing hypercarbia with bicarb of 33 and mildly elevated renal function with BUN of 25, creatinine 1.30, GFR 54 with baseline creatinine of 1.06. Blood glucose 91. Liver profile unremarkable. Troponin negative at less than 0.012. Patient admitted under our services with consultation to cardiology and neurology. Review of systems: Pertinent positives and negatives as discussed in HPI, a complete review of systems was performed and all other systems are negative. Physical exam: Vital signs reviewed and stable. General: Nontoxic, no distress and appears stated age. Derm: Skin warm and dry, normal coloration for ethnicity. Head: Atraumatic, normocephalic and symmetric. Eyes: EOM's intact, no lid lag, and anicteric sclera Mouth: no lip lesions, mucus membranes moist Cardiovascular: regular rate and rhythm with normal S1S2, soft systolic murmur, positive posterior tibial pulses bilaterally, and cap refill < 2 seconds. Lungs: Respirations even, regular, and unlabored on room air. Lungs CTA bilaterally, no rhonchi, no rales, no wheezing, and no accessory muscle usage. Abdominal: soft, nontender to palpation, no guarding, no appreciable organomegaly Ext: ROM intact. No gross muscle atrophy, no edema, no contractures Neuro: Speech clear, face symmetrical and CN II-XII grossly intact with no noted focal neuro deficits. Patient with moderate resting tremors in upper extremities worse on right. Psych: Alert and oriented to person, place, time, and situation. Appropriate and pleasant affect. Assessment and Plan of Care: Syncopal episode with loss of consciousness reported to last approximately 7 minutes, recurrent syncopal episodes x 4 over the past year Sinus Bradycardia Parkinson's disease Atrial fibrillation on Xarelto Hyperlipidemia -Cardiology consulted, appreciate recommendations -Neurology consulted, appreciate recommendations -Order placed for nursing communication to send for loop recorder report from [place]. -Patient to remain on continuous telemetry monitoring -Neurochecks every 4 hours and fall precautions to be maintained -Orthostatic vital signs -CT brain without contrast -Carotid Dopplers -Echocardiogram -EEG -At this time patient gentle IV fluid hydration with 0.9% normal saline at 75 cc/h and to continue atorvastatin 40 mg nightly, Xarelto 20 mg nightly, carbi dopa levodopa 25-100 mg tablets take 1.5 tablets 3 times daily. *Discussed with RNBret to be held pending results of CT brain. Data and imaging reviewed: As stated above in HPI. The patient is admitted with an anticipated greater than 2 midnight stay for evaluation of syncopal episode CODE STATUS: Full Code DVT prophylaxis: Xarelto Anticipated discharge date: Pending clinical course Anticipated discharge place: Home Patient was seen independently by Nurse Practitioner. This document was prepared using [employer] dictation software. Please allow for errors in ship rigger while rare they do occur. Past Medical History Past Medical History: Hyperlipidemia, Musculoskeletal Disorder, Neurologic Disorder Additional Past Medical History / Comment(s): parkensons hypotension History of Any Multi-Drug Resistant Organisms: None Reported Past Surgical History: Orthopedic Surgery Additional Past Surgical History / Comment(s): oral surg foot Past Anesthesia/Blood Transfusion Reactions: No Reported Reaction, Motion Sickness Past Psychological History: No Psychological Hx Reported Past Alcohol Use History: Occasional Past Drug Use History: None Reported - Past Family History Father History Unknown: Yes Mother Family Medical History: No Reported History Additional Family Medical History / Comment(s): Mother is healthy and 87yrs old. Medications and Allergies Home Medications Medication Instructions Recorded Confirmed Type Carbidopa-Levodopa 25-100 mg 1.5 tab PO TID@0800,1200,1700 01/23/19 05/14/24 History [Sinemet 25-100 mg] rOPINIRole HCL [Requip] 2 mg PO TID@0800,1200,1700 01/23/19 05/14/24 History Atorvastatin [Lipitor] 40 mg PO HS 04/16/24 05/14/24 History Melatonin 10 mg PO HS 04/16/24 05/14/24 History Rivaroxaban [Xarelto] 20 mg PO HS 04/16/24 05/14/24 History Sennosides [Senokot] 17.2 mg PO HS 05/14/24 05/14/24 History Vibegron [Gemtesa] 75 mg PO DIRECTED 05/14/24 05/14/24 History Allergies Allergy/AdvReac Type Severity Reaction Status Date / Time Latex, Natural Rubber Allergy Rash/Hives Verified 05/14/24 11:02 Penicillins Allergy Rash/Hives Verified 05/14/24 11:02 Physical Exam Vitals: Vital Signs Temp Pulse Resp BP Pulse Ox 05/14/24 13:00 56 L 16 142/88 98 05/14/24 10:58 97.7 F 46 L 16 114/69 99 Intake and Output 05/13/24 05/14/24 05/14/24 22:59 06:59 14:59 Other: Weight 85.275 kg Results CBC & Chem 7: 05/14/24 11:28 05/14/24 11:28 Labs: Abnormal Lab Results - Last 24 Hours (Table) 05/14/24 05/14/24 05/14/24 Range/Units 11:28 11:28 12:36 RBC 4.17 L (4.30-5.90) m/uL Plt Count 139 L (150-450) k/uL Lymphocytes # 0.9 L (1.0-4.8) k/uL PT 13.9 H (10.0-12.5) sec INR 1.3 H (<1.2) APTT 33.0 H (22.0-30.0) sec Carbon Dioxide 33 H (22-30) mmol/L BUN 25 H (9-20) mg/dL Creatinine 1.30 H (0.66-1.25) mg/dL
--- NOTE | 2024-05-14 15:45 | CT ---
EXAMINATION TYPE: CT brain wo con CT DLP: 1029.90 mGycm, Automated exposure control for dose reduction was used. DATE OF EXAM: 05/14/2024 3:37 PM COMPARISON: None. CLINICAL INDICATION:Male, 74 years old with history of syncope, on xarelto, syncope, on xarelto TECHNIQUE: Brain: Axial CT images of the brain were obtained with coronal and sagittal reformats created and rev iewed. Contrast used: None. Oral contrast used: None. FINDINGS: Brain: Extra-axial spaces: No abnormal extra-axial fluid collections. Ventricular system: Within normal limits Cerebral parenchyma: No acute intraparenchymal hemorrhage or mass effect. The [place]-white junction is well differentiated. Scattered hypoattenuating areas are seen within the white matter. Cerebellum: Unremarkable. Mass effect: No evidence of midline shift. Intracranial vasculature: Atherosclerotic calcifications of the intracranial vessels. Soft tissues: Normal. Calvarium/osseous structures: No depressed skull fracture. Paranasal sinuses and mastoid air cells: Mild scattered paranasal sinus disease. Visualized orbits: Orbital contents are intact. IMPRESSION: 1. No acute intracranial process. 2. Nonspecific white matter changes, likely secondary to chronic small vessel ischemic disease. [facility], , 05/14/2024 3:43 PM
--- NOTE | 2024-05-14 15:47 | US ---
EXAMINATION TYPE: US carotid duplex BILAT DATE OF EXAM: 05/14/2024 Exam done portable COMPARISON: NONE CLINICAL INDICATION: Male, 74 years old with history of syncope; TECHNIQUE: Carotid duplex ultrasound examination. Indirect Doppler criteria was utilized. FINDINGS: EXAM MEASUREMENTS: RIGHT: Peak Systolic Velocity (PSV) cm/sec ----- Right CCA: 79.3 ----- Right ICA: 59.1 ----- Right ECA: 106.0 ICA/CCA ratio: 0.8 RIGHT: End Diastole cm/sec ----- Right CCA: 14.9 ----- Right ICA: 12.6 ----- Right ECA: 15.9 LEFT: Peak Systolic Velocity (PSV) cm/sec ----- Left CCA: 70.3 ----- Left ICA: 83.4 ----- Left ECA: 103.0 ICA/CCA ratio: 1.2 LEFT: End Diastole cm/sec ----- Left CCA: 13.9 ----- Left ICA: 48.6 ----- Left ECA: 15.5 VERTEBRALS (direction of flow): Right Vertebral: Antegrade Left Vertebral: Antegrade Rhythm: Normal IMPRESSION: Scattered atherosclerotic disease without significant stenosis. [facility], , 05/14/2024 3:45 PM
[2024-05-14] MEDS: ATORVASTATIN 40 MG TAB PO SCH (20:14)
[2024-05-14] MEDS: RIVAROXABAN 20 MG TAB PO SCH (20:14)
[2024-05-15] MEDS: CARBIDOPA-LEVODOPA 25-100 MG 1 EACH TAB PO SCH (08:42)
--- NOTE | 2024-05-15 10:19 | P.CRDCN ---
History of Present Illness History of present illness: HISTORY OF PRESENT ILLNESS: This is a 74-year-old male with a past medical history significant for Parkinson's disease, paroxysmal A-fib, hyperlipidemia, former nicotine dependence, and syncope. Patient follows with a back wedger in [place]. We have been asked to see the patient in consultation for syncope. Patient examined at the bedside. Patient states he was at [employer] yesterday when he began to feel dizzy and lightheaded. He states he was standing up at this time. He reports he passed out shortly afterwards. He denied having any chest pain or shortness of breath. The patient was recently admitted in March 2024 due to syncope. Patient was discharged home in stable condition with an event monitor. Apparently, since that time the patient was seen at [facility] for another syncopal episode. He had a loop recorder placed at that time. The patient currently denies any chest pain or pressure. Vital signs are stable. DIAGNOSTICS: - EKG reveals sinus bradycardia with no signs of acute ischemia - Chest xray negative for acute process -Carotid Doppler: Scattered atherosclerotic disease without significant stenosis -CT of the brain: Negative for acute process - Laboratory data: WBC 5.0. Hemoglobin 13.2. Platelet count 139. Sodium 139. Potassium 4.6. BUN 25. Creatinine 1.3. Magnesium 2.2. Troponin negative x 3. Thyroid studies from March 2024 within normal limits. TSH 1.270. - Current home cardiac medications include Lipitor 40 mg at night and Xarelto 20 mg at night - Most recent echocardiogram obtained in March 2024 revealed ejection fraction 55 to 60%, mild aortic regurgitation, mild TR - Cardiac catheterization history: Patient denies REVIEW OF SYSTEMS: At the time of my exam: CONSTITUTIONAL: Denies fever or chills. HEENT: Denies blurred vision, vision changes, or eye pain. Denies hemoptysis CARDIOVASCULAR: Denies chest pain. Denies orthopnea. Denies PND. Denies palpitations RESPIRATORY: Denies shortness of breath. GASTROINTESTINAL: Denies abdominal pain. Denies nausea or vomiting. HEMATOLOGIC: Denies bleeding disorders. GENITOURINARY: Denies any blood in urine. SKIN: Denies pruitis. Denies rash. PHYSICAL EXAM: VITAL SIGNS: Reviewed. GENERAL: Well-developed in no acute distress. HEENT: Head is normocephalic. Pupils are equal, round. Sclerae anicteric. Mucous membranes of the mouth are moist. Neck supple. No JVD or thyromegaly LUNGS: Respirations even and unlabored. Lungs essentially clear to auscultation bilaterally. HEART: Regular rate and rhythm. S1 and S2 heard. ABDOMEN: Soft. Nondistended. Nontender. EXTREMITIES: Normal range of motion. No clubbing or cyanosis. Peripheral pulses intact. No lower extremity edema NEUROLOGIC: Awake and alert. Oriented x 3. ASSESSMENT: Recurrent syncope; 4th episode since January, suspect secondary to reflex syncope/orthostatic hypotension Recent loop recorder insertion, at [facility] Coronary artery calcifications, per CT scan Paroxysmal atrial fibrillation Parkinson's disease Hyperlipidemia Former nicotine dependence PLAN: No need to repeat echocardiogram as this was performed in March 2024 Thyroid studies from 03/2024 were within normal limits Continue telemetry monitoring Interrogate loop recorder Check orthostatic blood pressures Further recommendations pending patient course Patient to follow-up postdischarge with his primary back wedger in [place] Nurse practitioner note has been reviewed by physician. Signing provider agrees with the documented findings, assessment, and plan of care documented by CAR HOSTLER as a scribe. Past Medical History Past Medical History: Hyperlipidemia, Musculoskeletal Disorder, Neurologic Disorder Additional Past Medical History / Comment(s): parkensons hypotension History of Any Multi-Drug Resistant Organisms: None Reported Past Surgical History: Orthopedic Surgery Additional Past Surgical History / Comment(s): oral surg foot Past Anesthesia/Blood Transfusion Reactions: No Reported Reaction, Motion Sickness Past Psychological History: No Psychological Hx Reported Past Alcohol Use History: Occasional Past Drug Use History: None Reported - Past Family History Father History Unknown: Yes Mother Family Medical History: No Reported History Additional Family Medical History / Comment(s): Mother is healthy and 87yrs old. Medications and Allergies Home Medications Medication Instructions Recorded Confirmed Type Carbidopa-Levodopa 25-100 mg 1.5 tab PO TID@0800,1200,1700 01/23/19 05/14/24 History [Sinemet 25-100 mg] rOPINIRole HCL [Requip] 2 mg PO TID@0800,1200,1700 01/23/19 05/14/24 History Atorvastatin [Lipitor] 40 mg PO HS 04/16/24 05/14/24 History Melatonin 10 mg PO HS 04/16/24 05/14/24 History Rivaroxaban [Xarelto] 20 mg PO HS 04/16/24 05/14/24 History Sennosides [Senokot] 17.2 mg PO HS 05/14/24 05/14/24 History Vibegron [Gemtesa] 75 mg PO HS 05/14/24 05/15/24 History Allergies Allergy/AdvReac Type Severity Reaction Status Date / Time Latex, Natural Rubber Allergy Rash/Hives Verified 05/14/24 11:02 Penicillins Allergy Rash/Hives Verified 05/14/24 11:02 Physical Exam Vitals: Vital Signs Temp Pulse Pulse Resp BP BP Pulse Ox 05/15/24 02:35 57 L 15 05/15/24 02:00 97.6 F 97 17 169/93 05/14/24 20:14 57 L 15 05/14/24 20:00 98.0 F 57 L 15 146/76 05/14/24 15:23 163/84 05/14/24 14:39 97.8 F 60 16 173/87 99 05/14/24 13:00 56 L 16 142/88 98 05/14/24 10:58 97.7 F 46 L 16 114/69 99 Intake and Output 05/14/24 05/15/24 05/15/24 22:59 06:59 14:59 Intake Total 118 Balance 118 Intake: Oral 118 Other: Voiding Method Toilet Toilet # Voids 1 1 Results 05/14/24 11:28 05/14/24 11:28 Cardiac Enzymes 05/14/24 05/14/24 05/14/24 Range/Units 11:28 11:28 14:28 AST 30 (17-59) U/L Troponin I <0.012 <0.012 (0.000-0.034) ng/mL 05/14/24 Range/Units 18:45 AST (17-59) U/L Troponin I <0.012 (0.000-0.034) ng/mL Coagulation 05/14/24 Range/Units 12:36 PT 13.9 H (10.0-12.5) sec APTT 33.0 H (22.0-30.0) sec CBC 05/14/24 Range/Units 11:28 WBC 5.0 (3.8-10.6) k/uL RBC 4.17 L (4.30-5.90) m/uL Hgb 13.2 (13.0-17.5) gm/dL Hct 40.1 (39.0-53.0) % Plt Count 139 L (150-450) k/uL Comprehensive Metabolic Panel 05/14/24 Range/Units 11:28 Sodium 139 (137-145) mmol/L Potassium 4.6 (3.5-5.1) mmol/L Chloride 101 (98-107) mmol/L Carbon Dioxide 33 H (22-30) mmol/L BUN 25 H (9-20) mg/dL Creatinine 1.30 H (0.66-1.25) mg/dL Glucose 91 (74-99) mg/dL Calcium 9.6 (8.4-10.2) mg/dL AST 30 (17-59) U/L ALT 8 (4-49) U/L Alkaline Phosphatase 43 (38-126) U/L Total Protein 6.5 (6.3-8.2) g/dL Albumin 4.0 (3.5-5.0) g/dL Current Medications Generic Name Dose Route Start Last Admin Trade Name Freq PRN Reason Stop Dose Admin Acetaminophen 650 mg 05/14/24 12:57 Acetaminophen Tab 325 Mg Tab PO Q6HR PRN Mild Pain or Fever > 100.5 Atorvastatin Calcium 40 mg 05/14/24 21:00 05/14/24 20:14 Atorvastatin 40 Mg Tab PO 40 mg HS TASHA Administration Carbidopa/Levodopa 1.5 each 05/15/24 08:00 Carbidopa-Levodopa 25-100 Mg 1 Each Tab PO 0800,1200,1700 TASHA Naloxone HCl 0.2 mg 05/14/24 12:57 Naloxone 0.4 Mg/Ml 1 Ml Vial IV Q2M PRN Opioid Reversal Rivaroxaban 20 mg 05/14/24 21:00 05/14/24 20:14 Rivaroxaban 20 Mg Tab PO 20 mg HS TASHA Administration Protocol Ropinirole HCl 2 mg 05/15/24 08:00 Ropinirole Hcl 1 Mg Tab PO 0800,1200,1700 TASHA Intake and Output 05/14/24 05/15/24 05/15/24 22:59 06:59 14:59 Intake Total 118 Balance 118 Intake: Oral 118 Other: Voiding Method Toilet Toilet # Voids 1 1 05/14/24 11:28 05/14/24 11:28
--- NOTE | 2024-05-15 14:49 | P.PN ---
Subjective Progress Note Date: 05/15/24 Hospital course: Patient is a very pleasant 74-year-old male with a past medical history of Parkinson's disease, atrial fibrillation on Xarelto, and hyperlipidemia. He presented to the emergency department after a witnessed syncopal episode. Patient reports he was sitting in [employer] and got a pain in the back of his neck up into his head accompanied by some dizziness/lightheadedness and the next thing he remembers is waking up. Patient's significant other at bedside reports he just slumped over and was completely unresponsive for approximately 7 minutes and when he awoke he was drowsy but oriented and reported pain in the back of his neck and right shoulder. No involuntary loss of bowel or bladder. Family denies patient having any convulsing or shaking movements and denies him hitting his head during syncopal episode. Patient and family at bedside reports this is the fourth syncopal episode patient has had in the last 3 months and that he underwent evaluation at [facility] where he had a loop recorder placed. Patient currently denies having any headache, vision or hearing, tinnitus, chest pain, palpitations, shortness of breath, or experiencing any numbness/tingling/weakness/swelling in his extremities. On arrival to our facility, patient underwent evaluation in the emergency department. Vital signs upon arrival show blood pressure 114/69, heart rate 46, respiratory rate 16, temp 97.7 F, and SpO2 of 99% on room air. EKG completed showing sinus bradycardia at 48 bpm with no significant T wave or ST abnormalities showing no signs of acute ischemia upon personal review and interpretation. Chest x-ray negative for acute cardiopulmonary process. Labs were completed and reviewed. CBC showing thrombocytopenia with platelet count of 139. Coagulation profile showing elevated PT of 13.9, INR 1.3, and PTT of 33.0. BMP showing hypercarbia with bicarb of 33 and mildly elevated renal function with BUN of 25, creatinine 1.30, GFR 54 with baseline creatinine of 1.06. Blood glucose 91. Liver profile unremarkable. Troponin negative at less than 0.012. Patient admitted under our services with consultation to cardiology and neurology. Orthostatic vital signs completed and negative for orthostatic hypotension. CT brain without contrast was negative for acute intracranial process showing nonspecific white matter changes likely secondary to chronic small vessel ischemic disease. Carotid Dopplers completed showing scattered atherosclerotic disease without significant stenosis. Physical exam: Patient seen and fully evaluated at bedside. He was resting comfortably visiting with osman at bedside. Patient reports he has had no further episodes of neck/head pain, dizziness/lightheadedness, or syncopal episodes since arrival to our facility. Patient currently free from any complaints at this time. Vital signs reviewed and stable. General: Nontoxic, no distress and appears stated age. Derm: Skin warm and dry, normal coloration for ethnicity. Head: Atraumatic, normocephalic and symmetric. Eyes: EOM's intact, no lid lag, and anicteric sclera Mouth: no lip lesions, mucus membranes moist Cardiovascular: regular rate and rhythm with normal S1S2, soft systolic murmur, positive posterior tibial pulses bilaterally, and cap refill < 2 seconds. Lungs: Respirations even, regular, and unlabored on room air. Lungs CTA bilaterally, no rhonchi, no rales, no wheezing, and no accessory muscle usage. Abdominal: soft, nontender to palpation, no guarding, no appreciable org anomegaly Ext: ROM intact. No gross muscle atrophy, no edema, no contractures Neuro: Speech clear, face symmetrical and CN II-XII grossly intact with no noted focal neuro deficits. Patient with moderate resting tremors in upper extremities worse on right. Psych: Alert and oriented to person, place, time, and situation. Appropriate and pleasant affect. Assessment and Plan of Care: Syncopal episode with loss of consciousness reported to last approximately 7 minutes, recurrent syncopal episodes x 4 over the past 3 months Sinus Bradycardia Parkinson's disease Paroxysmal atrial fibrillation on Xarelto Hyperlipidemia -Cardiology consulted, reviewed documentation in chart. -Neurology consulted, appreciate recommendations -Loop Recorder was interrogated awaiting report. -Patient to remain on continuous telemetry monitoring -Neurochecks every 4 hours and fall precautions to be maintained -Orthostatic vital signs were negative -CT brain without contrast was negative for acute intracranial process showing nonspecific white matter changes likely secondary to chronic small vessel ischemic disease. -Carotid Dopplers completed showing scattered atherosclerotic disease without significant stenosis. -Echocardiogram -EEG completed and currently pending results. -Patient to continue atorvastatin 40 mg nightly, Xarelto 20 mg nightly, carbidopa levodopa 25-100 mg tablets take 1.5 tablets 3 times daily. -Thyroid function normal with recent labs drawn on 04/18/2024 TSH resulting at 1.270 with free T4 of 1.05 and free T3 of 2.40. Data and imaging reviewed: -Orthostatic vital signs were negative blood pressure supine 144/78, heart rate 67, sitting 142/79, heart rate 107, and standing blood pressure 132/70 with heart rate of 64. -CT brain without contrast was negative for acute intracranial process showing nonspecific white matter changes likely secondary to chronic small vessel ischemic disease. -Carotid Dopplers completed showing scattered atherosclerotic disease without significant stenosis. -Vital signs showing hypertension with blood pressure 174/97, heart rate 56, respiratory rate 16, temp 97.9 F, and SpO2 of 99% on room air. CODE STATUS: Full Code DVT prophylaxis: Xarelto Anticipated discharge date: Pending clinical course Anticipated discharge place: Home Patient was seen independently by Nurse Practitioner. This document was prepared using [employer] dictation software. Please allow for errors in pattern gater while rare they do occur. .. I reviewed the documentation as provided by the RODGER above, who is the original author of this note. I agree with the documented assessment and plan, with the following changes: none Objective - Vital Signs Vital signs: Vital Signs Temp 97.9 F 05/15/24 07:00 Pulse 56 L 05/15/24 07:00 Resp 16 05/15/24 07:00 BP 174/97 05/15/24 07:00 Pulse Ox 99 05/15/24 07:00 FiO2 Intake & Output 05/14/24 05/15/24 05/15/24 18:59 06:59 18:59 Intake Total 118 Balance 118 Weight 85.275 kg Intake: Oral 118 Other: Voiding Method Toilet Toilet # Voids 1 - Labs CBC & Chem 7: 05/14/24 11:28 05/14/24 11:28 Labs: Abnormal Lab Results - Last 24 Hours (Table) 05/14/24 05/14/24 05/14/24 Range/Units 11:28 11:28 12:36 RBC 4.17 L (4.30-5.90) m/uL Plt Count 139 L (150-450) k/uL Lymphocytes # 0.9 L (1.0-4.8) k/uL PT 13.9 H (10.0-12.5) sec INR 1.3 H (<1.2) APTT 33.0 H (22.0-30.0) sec Carbon Dioxide 33 H (22-30) mmol/L BUN 25 H (9-20) mg/dL Creatinine 1.30 H (0.66-1.25) mg/dL
[2024-05-15 14:59] LABS: Glucose,Whole Blood 108 mg/dL (70-110)
--- NOTE | 2024-05-15 15:21 | P.CNNES ---
History of Present Illness Consult date: 05/15/24 Requesting physician: Manuel Man Reason for Consult: syncopal episode History of Present Illness: This is a 74-year-old gentleman with history of Parkinson's disease presented emergency department because of syncopal episode. He is accompanied with his who provides some of the history. Seems to the patient was at [employer] yesterday and it seems around 9:45 AM patient got down sitting and then when in a few minutes the patient had a syncopal episode. The stated that he slumped over with the neck to the right side. He did not have any foaming but she felt sure it was drooling in the middle. He did not have any jerking of the any extremities. His eyes were closed. No urinary or bowel incontinence or no tongue bite. The episode lasted 7 minutes.Then he was confused after the episode unsure exact duration. This is the fourth episode since January of this year. For the episode he stated that it could be when he standing up. Regarding any warning sign he stated that he has been having right neck pain for maybe 2 days and it resolved but not only with this episode now it is resolved. Prior episode he does not have any warning sign. He has a loop recorder in place. He follows up with a neurologist over [facility]. He stated that he has orthostatic vitals in the past recently which were negative. Patient his neurologist that he seen him about 2 weeks ago wanted a tilt table test as an outpatient. He did not have EEG. According to the patient and his his neurologist felt this was more cardiac. But they stated that the cardiology team feels more neurological. He does not have any history of seizures. His Parkinson's medication (Sinemet) was increased about 2 weeks ago. He is pending to follow-up with [facility] for possible consideration of surgical intervention for his Parkinson disease. According to the the cardiology team feels is more neurological but his outpatient neurologist feels it is more cardiac in etiology Some of the workup during this hospital visit consisted of: Heart rate has been in as low as 40s to mid 50s. Orthostatic vitals is supine blood pressure of 144/78 with a heart rate 67, sitting is 142/79 with heart rate of 107 and standing is 132/70 with a heart rate of 64. CT of the head is reported as no acute intracranial process. Nonspecific white matter changes, likely secondary due to chronic small vessel ischemic disease. I personally reviewed the CT and agree with the report next Carotid duplex is reported as scattered atherosclerotic disease without significant stenosis. Review of Systems The positive and negative as per HPI. Past Medical History Past Medical History: Hyperlipidemia, Musculoskeletal Disorder, Neurologic Disorder Additional Past Medical History / Comment(s): parkensons hypotension History of Any Multi-Drug Resistant Organisms: None Reported Past Surgical History: Orthopedic Surgery Additional Past Surgical History / Comment(s): oral surg foot Past Anesthesia/Blood Transfusion Reactions: No Reported Reaction, Motion Sickness Past Psychological History: No Psychological Hx Reported Past Alcohol Use History: Occasional Past Drug Use History: None Reported - Past Family History Father History Unknown: Yes Mother Family Medical History: No Reported History Additional Family Medical History / Comment(s): Mother is healthy and 87yrs old. Medications and Allergies Home Medications Medication Instructions Recorded Confirmed Type Carbidopa-Levodopa 25-100 mg 1.5 tab PO TID@0800,1200,1700 01/23/19 05/14/24 History [Sinemet 25-100 mg] rOPINIRole HCL [Requip] 2 mg PO TID@0800,1200,1700 01/23/19 05/14/24 History Atorvastatin [Lipitor] 40 mg PO HS 04/16/24 05/14/24 History Melatonin 10 mg PO HS 04/16/24 05/14/24 History Rivaroxaban [Xarelto] 20 mg PO HS 04/16/24 05/14/24 History Sennosides [Senokot] 17.2 mg PO HS 05/14/24 05/14/24 History Vibegron [Gemtesa] 75 mg PO HS 05/14/24 05/15/24 History Allergies Allergy/AdvReac Type Severity Reaction Status Date / Time Latex, Natural Rubber Allergy Rash/Hives Verified 05/14/24 11:02 Penicillins Allergy Rash/Hives Verified 05/14/24 11:02 Physical Examination - Vital Signs Vital Signs: Vital Signs Temp Pulse Pulse Pulse Resp BP BP 05/15/24 12:10 107 H 64 67 16 142/79 132/70 05/15/24 07:00 97.9 F 56 L 16 05/15/24 02:35 57 L 15 05/15/24 02:00 97.6 F 97 17 05/14/24 20:14 57 L 15 05/14/24 20:00 98.0 F 57 L 15 05/14/24 15:23 05/14/24 14:39 97.8 F 60 16 BP BP BP Pulse Ox 05/15/24 12:10 144/78 100 05/15/24 07:00 174/97 99 05/15/24 02:35 05/15/24 02:00 169/93 05/14/24 20:14 05/14/24 20:00 146/76 05/14/24 15:23 163/84 05/14/24 14:39 173/87 99 Intake and Output 05/14/24 05/15/24 05/15/24 22:59 06:59 14:59 Intake Total 118 118 Output Total 900 Balance 118 -782 Intake: Oral 118 118 Output: Urine 900 Other: Voiding Method Toilet Toilet CAPD # Voids 1 1 GENERAL: The patient is lying in bed and is not in acute distress. NEUROLOGICAL: Higher mental function: The patient is awake, alert, oriented to self, place and time. Patient is following commands. No aphasia and no neglect. Cranial nerves: The pupils are round, equal and reactive to light and accommodation. Visual reece are full to confrontation throughout. Extraocular movement is intact no nystagmus is noted. Facial sensation is normal to touch throughout. The facial strength is normal throughout. Hearing is moderately decreased bilaterally to hand rub. Tongue is midline and moved [id number] without any difficulty. No dysarthria is noted. Shoulder shrug is normal bila terally. Motor: The strength is 5 over 5 throughout. Normal tone and bulk. Has resting tremor of the right upper extremity that is moderate in severity. Cerebellum: Normal finger to nose heel to chin bilaterally. Sensation: Sensation is normal to touch throughout. Reflexes (right/left): 2+ Plantars are downgoing bilaterally. Results - Laboratory Findings CBC and BMP: 05/14/24 11:28 05/14/24 11:28 Abnormal Lab Findings: Abnormal Labs 05/14/24 05/14/24 05/14/24 11:28 11:28 12:36 RBC 4.17 L Plt Count 139 L Lymphocytes # 0.9 L PT 13.9 H INR 1.3 H APTT 33.0 H Carbon Dioxide 33 H BUN 25 H Creatinine 1.30 H Assessment and Plan Assessment: This is a 74-year-old gentleman with history of Parkinson's disease who presents to the emergency department because of syncopal episode. He had an episode yesterday while he was in [employer] sitting down and stated that he has had lean to the right but no jerking of any extremities no foam morning around the mouth, no urinary or bowel incontinence. This is his fourth episode since January 2024. He follows up with a neurologist as an outpatient as recommended a tilt table test Recurrent syncopal episode unknown exact etiology. Does not appear seizure from the clinical history. Static vitals so far is negative. CT of the head is unremarkable for any acute process. Bradycardia as low as mid 40s to 50s History of Parkinson disease and it seems moderate to advanced in severity. Plan: Routine EEG preliminary is negative for any seizure or discharges. Patient has a pacemaker and pending interrogation of the pacemaker Cardiology is consulted and the primary team ordered 2D echo But cardiology team discontinue it. I recommend a tilt table test. I consulted PT OT Patient is on silver boot 45-101.5 tablet 3 times a day 8 at 12 and at 5 PM. He is also on ropinirole 2 g 3 times a day. Will defer modification of the medi cation to his outpatient neurologist. Per the he also has an appointment with [facility] who for possible consideration of surgical intervention for Parkinson disease Will defer the rest of the medical management to primary and other specialist Discussed with the patient, his was at bedside, and primary team nurse practitioner Thank for the consult Time with Patient: Greater than 30
--- NOTE | 2024-05-15 18:48 | P.PN ---
Progress Note - Text Progress Note Date: 05/15/24 A- team: Indication: Current syncopal episode Arrived on Scene to find: Overhead paged for a team to room 619 as patient was found to have another syncopal episode. Patient was sitting up in the chair at bedside visiting with his fiance for approximately an hour and a half when he reportedly slumped over and again went unresponsive. Upon arrival to room, patient was already coming back to and was being moved from chair to bed by nursing staff. Once placed into bed patient was examined, pupils equal. Patient responsive to painful stimuli and after a few minutes was able to speak but slightly confused. Speech was clear. Neurologist also at the bedside and discussed case in detail with Dr. Olivas. Notified programs director of recurrent syncopal episode discussed case with cardiac DATA ANALYTICS ARCHITECT. This makes patient's fifth syncopal episode over the past 3 months. Reviewed telemetry monitoring patient sinus bradycardia with rate in 50s. Blood Glucose 108. Blood pressure 112/66, heart rate 55, respiratory rate 14, and SpO2 of 97% on room air. Patient's mentation improving and back to baseline. Patient being transferred to [facility] for closer monitoring A Total of 39 minutes of critical care time was spent on the complex care of this patient. I reviewed the documentation as provided by the RODGER above, who is the original author of this note. I agree with the documented assessment and plan, with the following changes: none
[2024-05-16 08:13] LABS: HCT 43.1 % (39.0-53.0); HGB 14.3 gm/dL (13.0-17.5); MCH 32.2 pg (25.0-35.0); MCHC 33.1 g/dL (31.0-37.0); MCV 97.4 fL (80.0-100.0); Mean Platelet Volume 8.7; Platelet Count 149 k/uL (150-450); RBC 4.43 m/uL (4.30-5.90); RDW 12.3 % (11.5-15.5); WBC 5.4 k/uL (3.8-10.6)
[2024-05-16 08:45] LABS: ALT 24 U/L (4-49); AST 26 U/L (17-59); African American GFR (CKD) 88 (>60 ml/min/1.73 sqM); Albumin 3.9 g/dL (3.5-5.0); Alkaline Phosphatase 48 U/L (38-126); Anion Gap 6 mmol/L; Blood Urea Nitrogen 25 mg/dL (9-20); Calcium 9.3 mg/dL (8.4-10.2); Carbon Dioxide 30 mmol/L (22-30); Chloride 102 mmol/L (98-107); Glucose 82 mg/dL (74-99); Non-African American GFR(CKD) 76 (>60 ml/min/1.73 sqM); Potassium 4.2 mmol/L (3.5-5.1); Sodium 138 mmol/L (137-145); Total Bilirubin 0.8 mg/dL (0.2-1.3); Total Protein 6.4 g/dL (6.3-8.2)
[2024-05-16] MEDS: ACETAMINOPHEN TAB 325 MG TAB PO PRN (12:31)
[2024-05-16] MEDS: SODIUM CHLORIDE 0.9% 1,000 ML IV SCH (12:33)
--- NOTE | 2024-05-16 12:37 | P.PN ---
Subjective Progress Note Date: 05/16/24 I am following up with the patient and yesterday in the late afternoon he had a syncopal episode while resting in his recliner chair and prior to the episode he had bilateral neck pain and the episode lasted for few minutes but no jerking of any extremity no tongue biting no urinary or bowel incontinence. And after the episode he was responding. No further episodes afterwards. Objective - Vital Signs Vital signs: Vital Signs Temp 97.3 F L 05/16/24 12:25 Pulse 53 L 05/16/24 12:25 Resp 18 05/16/24 12:25 BP 126/74 05/16/24 12:25 Pulse Ox 99 05/16/24 12:25 FiO2 Intake & Output 05/15/24 05/16/24 05/16/24 18:59 06:59 18:59 Intake Total 236 240 358 Output Total 1100 200 Balance -864 40 358 Intake: Oral 236 240 358 Output: Urine 1100 200 Other: Voiding Method CAPD External Catheter External Catheter # Voids 2 - Exam GENERAL: The patient is sitting in his recliner chair and is not in acute distress. NEUROLOGICAL: Higher mental function: The patient is awake, alert, oriented to self, place and time. Patient is following commands. No aphasia and no neglect. Cranial nerves: The pupils are round, equal and reactive to light and accommodation. Visual reece are full to confrontation throughout. Extraocular movement is intact no nystagmus is noted. Facial sensation is normal to touch throughout. The facial strength is normal throughout. Hearing is moderately decreased bilaterally to hand rub. Tongue is midline and moved [id number] without any difficulty. No dysarthria is noted. Shoulder shrug is normal bilaterally. Motor: The strength is 5 over 5 throughout. Normal tone and bulk. Has resting tremor of the right upper extremity that is moderate in severity. Cerebellum: Normal finger to nose heel to chin bilaterally. Sensation: Sensation is normal to touch throughout. Reflexes (right/left): 2+ Plantars are downgoing bilaterally. Some of the workup during this hospital visit consisted of: Heart rate has been in as low as 40s to mid 50s. Orthostatic vitals is supine blood pressure of 144/78 with a heart rate 67, sitting is 142/79 with heart rate of 107 and standing is 132/70 with a heart rat e of 64. CT of the head is reported as no acute intracranial process. Nonspecific white matter changes, likely secondary due to chronic small vessel ischemic disease. I personally reviewed the CT and agree with the report next Carotid duplex is reported as scattered atherosclerotic disease without significant stenosis. - Labs CBC & Chem 7: 05/16/24 07:19 05/16/24 07:19 Labs: Abnormal Lab Results - Last 24 Hours (Table) 05/16/24 05/16/24 Range/Units 07:19 07:19 Plt Count 149 L (150-450) k/uL BUN 25 H (9-20) mg/dL Assessment and Plan Assessment: This is a 74-year-old gentleman with history of Parkinson's disease who presents to the emergency department because of syncopal episode. He had an episode yesterday while he was in zoroastrian sitting down and stated that he has had lean to the right but no jerking of any extremities no foam morning around the mouth, no urinary or bowel incontinence. This is his fourth episode since January 2024. He follows up with a neurologist as an outpatient as recommended a tilt table test Recurrent syncopal episode unknown exact etiology. Does not appear seizure from the clinical history. EEG is negative for seizure or discharges. Orthostatic vitals so far is negative. CT of the head is unremarkable for any acute process. Bradycardia as low as mid 40s to 50s History of Parkinson disease and it seems moderate to advanced in severity. Plan: Patient has a pacemaker and pending report of interrogation of the pacemaker Cardiology is consulted and the primary team ordered 2D echo But cardiology team discontinue it. I recommend a tilt table test. Will obtain MRI of the brain and cervical spine since she is complaining of neck pain prior to the episodes. PT and OT are consulted. Patient is on Sinemet 25-100, 1 tablet 3 times a day (8am, 12pm and at 5 PM. He is also on ropinirole 2 g 3 times a day). Will defer modification of the medication to his outpatient neurologist. His outpatient neurologist has increased his Parkinson's medication about 2 weeks ago according to the patient and his . I feel his medication are not maxed out. Per the he also has an appointment with [facility] who for possible consideration of surgical intervention for Parkinson disease Will defer the rest of the medical management to primary and other specialist Discussed with the patient and primary team nurse practitioner. Time with Patient: Less than 30
[2024-05-16] MEDS: SODIUM CHLORIDE 0.9% 1,000 ML IV ONE (12:58)
--- NOTE | 2024-05-16 14:19 | P.PN ---
Subjective Progress Note Date: 05/16/24 Hospital course: Patient is a very pleasant 74-year-old male with a past medical history of Parkinson's disease, atrial fibrillation on Xarelto, and hyperlipidemia. He presented to the emergency department after a witnessed syncopal episode. Patient reports he was sitting in restorationism and got a pain in the back of his neck up into his head accompanied by some dizziness/lightheadedness and the next thing he remembers is waking up. Patient's significant other at bedside reports he just slumped over and was completely unresponsive for approximately 7 minutes and when he awoke he was drowsy but oriented and reported pain in the back of his neck and right shoulder. No involuntary loss of bowel or bladder. Family denies patient having any convulsing or shaking movements and denies him hitting his head during syncopal episode. Patient and family at bedside reports this is the fourth syncopal episode patient has had in the last 3 months and that he underwent evaluation at [place] where he had a loop recorder placed. Patient currently denies having any headache, vision or hearing, tinnitus, chest pain, palpitations, shortness of breath, or experiencing any numbness/tingling/weakness/swelling in his extremities. On arrival to our facility, patient underwent evaluation in the emergency department. Vital signs upon arrival show blood pressure 114/69, heart rate 46, respiratory rate 16, temp 97.7 F, and SpO2 of 99% on room air. EKG completed showing sinus bradycardia at 48 bpm with no significant T wave or ST abnormalities showing no signs of acute ischemia upon personal review and interpretation. Chest x-ray negative for acute cardiopulmonary process. Labs were completed and reviewed. CBC showing thrombocytopenia with platelet count of 139. Coagulation profile showing elevated PT of 13.9, INR 1.3, and PTT of 33.0. BMP showing hypercarbia with bicarb of 33 and mildly elevated renal function with BUN of 25, creatinine 1.30, GFR 54 with baseline creatinine of 1.06. Blood glucose 91. Liver profile unremarkable. Troponin negative at less than 0.012. Patient admitted under our services with consultation to cardiology and neurology. Orthostatic vital signs completed and negative for orthostatic hypotension. CT brain without contrast was negative for acute intracranial process showing nonspecific white matter changes likely secondary to chronic small vessel ischemic disease. Carotid Dopplers completed showing scattered atherosclerotic disease without significant stenosis. On the afternoon of 05/15/2024, patient again had a witnessed syncopal episode while sitting up in his chair. Patient was reportedly sitting in chair for approximately 90 minutes talking on the phone to his daughter when suddenly he complained of pain in his posterior neck which was followed by syncopal episode with loss of consciousness lasting a couple minutes prior to nursing staff transferring patient to bed. A team was called and patient was assessed at bedside. Vital signs during this event were stable, blood glucose was 108 and telemetry unchanged during event as patient remained in sinus bradycardia with rate maintaining in 50s throughout entire event.. Patient again had no noted convulsions/seizure activity, loss of bowel or bladder, or any other noted abnormalities. After a couple of minutes patient became responsive to painful stimuli and returned to baseline after approximately 10 minutes. Physical exam: Patient seen ,and fully evaluated at bedside. He was resting comfortably in bed visiting with osman at bedside. Patient reports he has had no further episodes of neck/head pain, dizziness/lightheadedness, or syncopal episodes since transfer to . Patient currently free from any complaints at this time. Vital signs reviewed and stable. General: Nontoxic, no distress and appears stated age. Derm: Skin warm and dry, normal coloration for ethnicity. Head: Atraumatic, normocephalic and symmetric. Eyes: EOM's intact, no lid lag, and anicteric sclera Mouth: no lip lesions, mucus membranes moist Cardiovascular: regular rate and rhythm with normal S1S2, soft systolic murmur, positive posterior tibial pulses bilaterally, and cap refill < 2 seconds. Lungs: Respirations even, regular, and unlabored on room air. Lungs CTA bilaterally, no rhonchi, no rales, no wheezing, and no accessory muscle usage. Abdominal: soft, nontender to palpation, no guarding, no appreciable organomegaly Ext: ROM intact. No gross muscle atrophy, no edema, no contractures Neuro: Speech clear, face symmetrical and CN II-XII grossly intact with no noted focal neuro deficits. Patient with moderate resting tremors in upper extremities worse on right. Psych: Alert and oriented to person, place, time, and situation. Appropriate and pleasant affect. Assessment and Plan of Care: Recurrent Syncopal episodes, 5 episodes over last 3 months longest episode witnessed by nursing staff yesterday afternoon, all begining with pain in posterior neck followed by loss of consciousness Sinus Bradycardia Parkinson's disease Paroxysmal atrial fibrillation on Xarelto Hyperlipidemia -Cardiology consulted, discussed case with packing room supervisor and cardiac STREET FLUSHER DRIVER stating they reviewed loop recorder report which shows no abnormalities and will order a tilt table test to be completed. -Neurology following, discussed case with neurologist Dr. Hobson recommending MRI brain with and without contrast and MRI cervical spine. Orders placed per his recommendations for MRI at this time. -Loop Recorder was interrogated awaiting report. Documented heart rate during hospitalization as low as 45. -Patient to remain on continuous telemetry monitoring -Continue neurochecks every 4 hours and fall precautions to be maintained -Orthostatic vital signs were negative -CT brain without contrast was negative for acute intracranial process showing nonspecific white matter changes likely secondary to chronic small vessel ischemic disease. -Carotid Dopplers completed showing scattered atherosclerotic disease without significant stenosis. -EEG completed and currently pending official report, however neurologist stat ing negative for epileptiform discharges with no noted seizure activity. -Patient to continue atorvastatin 40 mg nightly, Xarelto 20 mg nightly, carbidopa levodopa 25-100 mg tablets take 1.5 tablets 3 times daily. -Thyroid function normal with recent labs drawn on 04/18/2024 TSH resulting at 1.270 with free T4 of 1.05 and free T3 of 2.40. Data and imaging reviewed: -Orthostatic vital signs were negative blood pressure supine 144/78, heart rate 67, sitting 142/79, heart rate 107, and standing blood pressure 132/70 with heart rate of 64. -Vital signs reviewed showing blood pressure 107/82, heart rate 55, respiratory rate 16, temp 98.2 F, and SpO2 of 97% on room air. -Repeat EKG reviewed showing sinus bradycardia 58 bpm with no noted T wave or ST abnormality showing no signs of acute ischemia. -Morning labs reviewed. CBC showing thrombocytopenia with platelet count of 149 otherwise normal findings. BMP showing mild prerenal azotemia with BUN of 25 otherwise normal findings. Blood glucose 82. Magnesium 2.0. And liver profile unremarkable. CODE STATUS: Full Code DVT prophylaxis: Xarelto Anticipated discharge date: Pending clinical course Anticipated discharge place: Home Patient was seen independently by Nurse Practitioner. This document was prepared using [employer] dictation software. Please allow for errors in modeling teacher while rare they do occur. . I reviewed the documentation as provided by the RODGER above, who is the original author of this note. I agree with the documented assessment and plan, with the following changes: none Objective - Vital Signs Vital signs: Vital Signs Temp 97.8 F 05/15/24 20:00 Pulse 58 L 05/16/24 02:00 Resp 18 05/16/24 02:00 BP 106/60 05/16/24 02:00 Pulse Ox 97 05/15/24 20:00 FiO2 Intake & Output 05/15/24 05/16/24 05/16/24 18:59 06:59 18:59 Intake Total 236 240 Output Total 1100 200 Balance -864 40 Intake: Oral 236 240 Output: Urine 1100 200 Other: Voiding Method CAPD External Catheter # Voids 2 - Labs CBC & Chem 7: 05/16/24 07:19 05/16/24 07:19
--- NOTE | 2024-05-16 14:30 | P.PN ---
Subjective Progress Note Date: 05/16/24 HISTORY OF PRESENT ILLNESS: This is a 74-year-old male with a past medical history significant for Park inson's disease, paroxysmal A-fib, hyperlipidemia, former nicotine dependence, and syncope. Patient follows with a bracelet former in [place]. We have been asked to see the patient in consultation for syncope. Patient examined at the bedside. Patient states he was at restorationist yesterday when he began to feel dizzy and lightheaded. He states he was standing up at this time. He reports he passed out shortly afterwards. He denied having any chest pain or shortness of breath. The patient was recently admitted in March 2024 due to syncope. Patient was discharged home in stable condition with an event monitor. Apparently, since that time the patient was seen at [facility] for another syncopal episode. He had a loop recorder placed at that time. The patient currently denies any chest pain or pressure. Vital signs are stable. DIAGNOSTICS: - EKG reveals sinus bradycardia with no signs of acute ischemia - Chest xray negative for acute process -Carotid Doppler: Scattered atherosclerotic disease without significant stenosis -CT of the brain: Negative for acute process - Laboratory data: WBC 5.0. Hemoglobin 13.2. Platelet count 139. Sodium 139. Potassium 4.6. BUN 25. Creatinine 1.3. Magnesium 2.2. Troponin negative x 3. Thyroid studies from March 2024 within normal limits. TSH 1.270. - Current home cardiac medications include Lipitor 40 mg at night and Xarelto 20 mg at night - Most recent echocardiogram obtained in March 2024 revealed ejection fraction 55 to 60%, mild aortic regurgitation, mild TR - Cardiac catheterization history: Patient denies 05/16 Patient is seen in follow up. Reviewed interrogation of Loop Recorder and no abnormality noted. Reviewed results with patient and his . Patient's would really like him to have a tilt table test. Discussed with him that the tilt table test may not change any plan of care. Discussed that the symptoms are most likely due to autonomic dysfunction secondary to the Parkinson's disease. Patient states that it starts out as a muscle pain at the back of his neck and into his head and then he has a syncopal episode. Blood pressure 107/82, pulse ox 97% on room air, heart rate 55. Repeat blood work reveals WBC 5.4, hemoglobin 14.3. Sodium 130, potassium 4.2. BUN 25 creatinine 0.98. PHYSICAL EXAM: VITAL SIGNS: Reviewed. GENERAL: Well-developed in no acute distress. HEENT: Head is normocephalic. Pupils are equal, round. Sclerae anicteric. Mucous membranes of the mouth are moist. Neck supple. No JVD or thyromegaly LUNGS: Respirations even and unlabored. Lungs essentially clear to auscultation bilaterally. HEART: Regular rate and rhythm. S1 and S2 heard. ABDOMEN: Soft. Nondistended. Nontender. EXTREMITIES: Normal range of motion. No clubbing or cyanosis. Peripheral pulses intact. No lower extremity edema NEUROLOGIC: Awake and alert. Oriented x 3. ASSESSMENT: Recurrent syncope; 4th episode since January, suspect secondary to reflex syncope/orthostatic hypotension Recent loop recorder insertion, at [facility] Coronary artery calcifications, per CT scan Paroxysmal atrial fibrillation Parkinson's disease Hyperlipidemia Former nicotine dependence PLAN: No need to repeat echocardiogram as this was performed in March 2024 Thyroid studies from 03/2024 were within normal limits Continue telemetry monitoring Obtain tilt table test Patient to follow-up postdischarge with his primary bracelet former in [place] Nurse practitioner note has been reviewed by physician. Signing provider agrees with the documented findings, assessment, and plan of care documented by SUPERVISOR LEAD BURNING as a scribe. Objective - Vital Signs Vital signs: Vital Signs Temp 98.2 F 05/16/24 08:00 Pulse 55 L 05/16/24 08:00 Resp 16 05/16/24 08:00 BP 107/82 05/16/24 08:00 Pulse Ox 97 05/16/24 08:00 FiO2 Intake & Output 05/15/24 05/16/24 05/16/24 18:59 06:59 18:59 Intake Total 236 240 358 Output Total 1100 200 Balance -864 40 358 Intake: Oral 236 240 358 Output: Urine 1100 200 Other: Voiding Method CAPD External Catheter External Catheter # Voids 2 - Labs CBC & Chem 7: 05/16/24 07:19 05/16/24 07:19 Labs: Abnormal Lab Results - Last 24 Hours (Table) 05/16/24 05/16/24 Range/Units 07:19 07:19 Plt Count 149 L (150-450) k/uL BUN 25 H (9-20) mg/dL
--- NOTE | 2024-05-16 16:35 | MR ---
EXAMINATION TYPE: MR brain wo/w cspine wo DATE OF EXAM: 05/16/2024 COMPARISON: None HISTORY: Recurrent syncope CONTRAST: Performed utilizing 8 mL intravenous Gadavist gadolinium contrast. TECHNIQUE: Multiplanar, multiecho imaging on a 3.0 Rosaura magnet is performed through the brain. Stud y is performed within 24 hours of arrival to the hospital. The craniovertebral junction is normal. The pituitary is normal. Diffusion-weighted imaging is performed. No abnormal hyperintensity is present to suggest an acute i ntracranial infarct or acute ischemic change. Mild periventricular white matter hyperintensities present on her recovery weighted sequences, likely on the basis of chronic white matter ischemic change. No abnormal enhancement . Ventricles and sulci are prominent for the patient age. IMPRESSION: 1. Atrophy with mild periventricular white matter ischemic type changes EXAMINATION TYPE: MR brain wo/w cspine wo DATE OF EXAM: 05/16/2024 COMPARISON: None HISTORY: Recurrent syncope CONTRAST: Performed utilizing 8 mL intravenous Gadavist gadolinium contrast. TECHNIQUE: Multiplanar multiecho imaging on a 3.0 Rosaura magnet is performed through the cervical spin e. FINDINGS: The craniovertebral junction is normal. Vertebral body alignment is normal. C7-T1: No focal disc herniation or significant disc bulge is evident. No spinal canal stenosis or n eural foraminal stenosis is present. C6-7: Disc bulges into thecal sac. No cord contact is evident. No spinal canal stenosis. Neural usama en are patent. C5-6: A based disc bulge is present slightly greater to the right paracentral region. This may have c ord contact. No AP spinal stenosis is present.. C4-5: Central right paracentral disc bulge has moderate anterior thecal sac compression. This comes i n close most approximation of the spinal cord with some cord deformity. No AP spinal canal stenosis. Neural foramen are patent.. Mild disc space narrowing is present. C3-4: Broad-based disc bulge with mild anterior thecal sac contact. No cord contact or spinal canal s tenosis. Neural foramen are patent. C2-3: No focal disc herniation or significant disc bulge is evident. No spinal canal stenosis or mora ral foraminal stenosis is present. IMPRESSION: 1. Disc bulging at C5-6, C4-5, and C3-4. 2. Cord contact and cord deformity is present at C4-5 central and right paracentral. No signal abnorm ality within the cord evident. [facility], , 05/16/2024 4:33 PM
--- NOTE | 2024-05-17 10:13 | P.CNOR ---
History of Present Illness - [facility] Consult date: 05/17/24 Consult reason: other (Abnormal cervical spine MRI) History of present illness: Patient is a 74-year-old male who has been recently admitted to [facility] with regards to his syncopal episodes. Apparently patient has been dealing with this since January, he has been admitted to a few different hospitals and undergone a couple different workups. Since being admitted to our hospital, he is being seen by both internal medicine, cardiology and neurology. A recent MRI of the brain and cervical spine was done, due to the abnormal findings our orthopedic team was consulted. Patient was evaluated today at bedside, his is present at bedside, he is resting in his hospital chair. Patient has a notable tremor in the right upper extremity. He has a known history of Parkinson's disease. He has a known history of proximal A-fib also which she does take a blood thinner for. Patient does admit to some posterior neck pain has been present for quite some time. He notices that the pain in the neck is a little bit worse prior and after the syncopal episodes. Patient does admit to some chronic low back pain also. Patient denies any rhina weakness in the bilateral upper or lower extremities. He denies any severe shooting pains to the bilateral upper and lower extremities. He denies any paresthesias to the bilateral upper extremities. He does admit to some minor numbness and tingling in the feet which she has been stating is been for quite some time. He denies any loss of bowel or bladder function. He denies any numbness or tingling to the genital or perineal region. He denies any previous surgery to the cervical, thoracic or lumbar spine. Review of Systems Constitutional: Reports as per HPI Past Medical History Past Medical History: Hyperlipidemia, Musculoskeletal Disorder, Neurologic Disorder Additional Past Medical History / Comment(s): parkensons hypotension History of Any Multi-Drug Resistant Organisms: None Reported Past Surgical History: Orthopedic Surgery Additional Past Surgical History / Comment(s): oral surg foot Past Anesthesia/Blood Transfusion Reactions: No Reported Reaction, Motion Sickness Past Psychological History: No Psychological Hx Reported Past Alcohol Use History: Occasional Past Drug Use History: None Reported - Past Family History Father History Unknown: Yes Mother Family Medical History: No Reported History Additional Family Medical History / Comment(s): Mother is healthy and 87yrs old. Medications and Allergies Home Medications Medication Instructions Recorded Confirmed Type Carbidopa-Levodopa 25-100 mg 1.5 tab PO TID@0800,1200,1700 01/23/19 05/14/24 History [Sinemet 25-100 mg] rOPINIRole HCL [Requip] 2 mg PO TID@0800,1200,1700 01/23/19 05/14/24 History Atorvastatin [Lipitor] 40 mg PO HS 04/16/24 05/14/24 History Melatonin 10 mg PO HS 04/16/24 05/14/24 History Rivaroxaban [Xarelto] 20 mg PO HS 04/16/24 05/14/24 History Sennosides [Senokot] 17.2 mg PO HS 05/14/24 05/14/24 History Vibegron [Gemtesa] 75 mg PO HS 05/14/24 05/15/24 History Allergies Allergy/AdvReac Type Severity Reaction Status Date / Time Latex, Natural Rubber Allergy Rash/Hives Verified 05/14/24 11:02 Penicillins Allergy Rash/Hives Verified 05/14/24 11:02 Physical Examination Gen: AOx3, NAD VSS stable at this time Integument: No open lesions, sores, areas of erythema are present throughout the cervical spine Palpation: No significant tenderness is present to the midline or paraspinal region of the cervical spine ROM: Full range of motion in all major muscle groups of the bilateral upper and lower extremities, no focal deficits appreciated Sensory Exam: Senory exam to light touch is intact C5-T1 Senosry exam to light touch is intact L2-S1 Motor: 5/5 strength appreciated bilateral upper extremities with shoulder elevation, shoulder abduction, elbow extension, elbow flexion, wrist extension, wrist flexion, electronic publisher 5/5 strength appreciate the bilateral lower extremities with hip flexion, knee extension, knee flexion 5/5 strength appreciated the right lower extremity with plantarflexion, dorsiflexion, EHL, FHL 4/5 strength appreciated in the left lower extremity with dorsiflexion, EHL Reflexes: 2/4 in all UE and LE Negative Christie's bilaterally Negative clonus bilaterally Special Test: Negative straight leg raise bilaterally Results - Labs Labs: H & H 05/14/24 05/16/24 Range/Units 11:28 07:19 Hgb 13.2 14.3 (13.0-17.5) gm/dL Hct 40.1 43.1 (39.0-53.0) % Coagulation 05/14/24 Range/Units 12:36 INR 1.3 H (<1.2) Result Diagrams: 05/16/24 07:19 05/16/24 07:19 - Diagnostic results Cervical MRI with/without contrast: report reviewed, image reviewed Assessment and Plan Assessment: Syncopal episodes Parkinson's Cervicalagia Multilevel cervical spondylosis, most severe levels C3-C4, C4-C5, C5-C6 Broad-based disc bulge with mild cervical spinal cord compression at C4-C5 Other medical comorbidities Plan: Will review cervical spine MRI results with my attending Dr. Childers later today Patient is demonstrating no acute myelopathic symptoms at this time, his range of motion and strength in the bilateral upper and lower extremities are adequate. MRI does demonstrate no acute signal changes in the cervical spine Discussed with both the patient and his briefly today at bedside he has degenerative findings throughout the cervical spine. I also mention that he probably has very similar changes to the lumbar spine. Further recommendations to follow after discussion with attending physician Other medical specialty recommendations appreciated Time with Patient: Less than 30
[2024-05-17] MEDS: MIDODRINE 5 MG TAB PO SCH (11:21)
--- NOTE | 2024-05-17 12:40 | P.PN ---
Subjective Progress Note Date: 05/17/24 HISTORY OF PRESENT ILLNESS: This is a 74-year-old male with a past medical history significant for Park inson's disease, paroxysmal A-fib, hyperlipidemia, former nicotine dependence, and syncope. Patient follows with a retread supervisor in [place]. We have been asked to see the patient in consultation for syncope. Patient examined at the bedside. Patient states he was at [employer] yesterday when he began to feel dizzy and lightheaded. He states he was standing up at this time. He reports he passed out shortly afterwards. He denied having any chest pain or shortness of breath. The patient was recently admitted in March 2024 due to syncope. Patient was discharged home in stable condition with an event monitor. Apparently, since that time the patient was seen at [facility] for another syncopal episode. He had a loop recorder placed at that time. The patient currently denies any chest pain or pressure. Vital signs are stable. DIAGNOSTICS: - EKG reveals sinus bradycardia with no signs of acute ischemia - Chest xray negative for acute process -Carotid Doppler: Scattered atherosclerotic disease without significant stenosis -CT of the brain: Negative for acute process - Laboratory data: WBC 5.0. Hemoglobin 13.2. Platelet count 139. Sodium 139. Potassium 4.6. BUN 25. Creatinine 1.3. Magnesium 2.2. Troponin negative x 3. Thyroid studies from March 2024 within normal limits. TSH 1.270. - Current home cardiac medications include Lipitor 40 mg at night and Xarelto 20 mg at night - Most recent echocardiogram obtained in March 2024 revealed ejection fraction 55 to 60%, mild aortic regurgitation, mild TR - Cardiac catheterization history: Patient denies 05/16 Patient is seen in follow up. Reviewed interrogation of Loop Recorder and no abnormality noted. Reviewed results with patient and his . Patient's would really like him to have a tilt table test. Discussed with him that the tilt table test may not change any plan of care. Discussed that the symptoms are most likely due to autonomic dysfunction secondary to the Parkinson's disease. Patient states that it starts out as a muscle pain at the back of his neck and into his head and then he has a syncopal episode. Blood pressure 107/82, pulse ox 97% on room air, heart rate 55. Repeat blood work reveals WBC 5.4, hemoglobin 14.3. Sodium 130, potassium 4.2. BUN 25 creatinine 0.98. 05/17 Patient underwent tilt table test today and had a syncopal episodes with systolic blood pressure in the 70s, no change in heart rate. Patient denies having any chest pain, no dizziness. He states he is only move from the bed to the chair. No shortness of breath. Blood pressure 144/76, heart rate 58, pulse ox 97% on room air. Tilt table test report will be requested. PHYSICAL EXAM: VITAL SIGNS: Reviewed. GENERAL: Well-developed in no acute distress. HEENT: Head is normocephalic. Pupils are equal, round. Sclerae anicteric. Mucous membranes of the mouth are moist. Neck supple. No JVD or thyromegaly LUNGS: Respirations even and unlabored. Lungs essentially clear to auscultation bilaterally. HEART: Regular rate and rhythm. S1 and S2 heard. ABDOMEN: Soft. Nondistended. Nontender. EXTREMITIES: Normal range of motion. No clubbing or cyanosis. Peripheral pulses intact. No lower extremity edema NEUROLOGIC: Awake and alert. Oriented x 3. ASSESSMENT: Recurrent syncope; 4th episode since January, suspect secondary to reflex syncope/orthostatic hypotension Recent loop recorder insertion, at [facility] Coronary artery calcifications, per CT scan Paroxysmal atrial fibrillation Parkinson's disease Hyperlipidemia Former nicotine dependence PLAN: No need to repeat echocardiogram as this was performed in March 2024 Thyroid studies from 03/2024 were within normal limits Continue telemetry monitoring Start patient on midodrine 5 mg 3 times daily starting now and later today check orthostatic vital signs Obtain tilt table test report Patient to follow-up postdischarge with his primary retread supervisor in [place] Nurse practitioner note has been reviewed by physician. Signing provider agrees with the documented findings, assessment, and plan of care documented by POWER TOOL REPAIRER as a scribe. Objective - Vital Signs Vital signs: Vital Signs Temp 98.9 F 05/17/24 09:00 Pulse 58 L 05/17/24 09:00 Resp 16 05/17/24 09:00 BP 144/76 05/17/24 09:00 Pulse Ox 97 05/17/24 09:00 FiO2 Intake & Output 05/16/24 05/17/24 05/17/24 18:59 06:59 18:59 Intake Total 496 20 368 Output Total 500 750 Balance -4 -730 368 Weight 85.2 kg 82.1 kg Intake: IV 20 20 10 Invasive Line 1 10 20 10 Oral 476 358 Output: Urine 500 750 Other: Voiding Method External Catheter External Catheter External Catheter - Labs CBC & Chem 7: 05/16/24 07:19 05/16/24 07:19
--- NOTE | 2024-05-17 14:23 | P.PN ---
Subjective Progress Note Date: 05/17/24 Hospital course: Patient is a very pleasant 74-year-old male with a past medical history of Parkinson's disease, atrial fibrillation on Xarelto, and hyperlipidemia. He presented to the emergency department after a witnessed syncopal episode. Patient reports he was sitting in [place] and got a pain in the back of his neck up into his head accompanied by some dizziness/lightheadedness and the next thing he remembers is waking up. Patient's significant other at bedside reports he just slumped over and was completely unresponsive for approximately 7 minutes and when he awoke he was drowsy but oriented and reported pain in the back of his neck and right shoulder. No involuntary loss of bowel or bladder. Family denies patient having any convulsing or shaking movements and denies him hitting his head during syncopal episode. Patient and family at bedside reports this is the fourth syncopal episode patient has had in the last 3 months and that he underwent evaluation at [place] where he had a loop recorder placed. Patient currently denies having any headache, vision or hearing, tinnitus, chest pain, palpitations, shortness of breath, or experiencing any numbness/tingling/weakness/swelling in his extremities. On arrival to our facility, patient underwent evaluation in the emergency department. Vital signs upon arrival show blood pressure 114/69, heart rate 46, respiratory rate 16, temp 97.7 F, and SpO2 of 99% on room air. EKG completed showing sinus bradycardia at 48 bpm with no significant T wave or ST abnormalities showing no signs of acute ischemia upon personal review and interpretation. Chest x-ray negative for acute cardiopulmonary process. Labs were completed and reviewed. CBC showing thrombocytopenia with platelet count of 139. Coagulation profile showing elevated PT of 13.9, INR 1.3, and PTT of 33.0. BMP showing hypercarbia with bicarb of 33 and mildly elevated renal function with BUN of 25, creatinine 1.30, GFR 54 with baseline creatinine of 1.06. Blood glucose 91. Liver profile unremarkable. Troponin negative at less than 0.012. Patient admitted under our services with consultation to cardiology and neurology. Orthostatic vital signs completed and negative for orthostatic hypotension. CT brain without contrast was negative for acute intracranial process showing nonspecific white matter changes likely secondary to chronic small vessel ischemic disease. Carotid Dopplers completed showing scattered atherosclerotic disease without significant stenosis. On the afternoon of 05/15/2024, patient again had a witnessed syncopal episode while sitting up in his chair. Patient was reportedly sitting in chair for approximately 90 minutes talking on the phone to his daughter when suddenly he complained of pain in his posterior neck which was followed by syncopal episode with loss of consciousness lasting a couple minutes prior to nursing staff transferring patient to bed. A team was called and patient was assessed at bedside. Vital signs during this event were stable, blood glucose was 108 and telemetry unchanged during event as patient remained in sinus bradycardia with rate maintaining in 50s throughout entire event.. Patient again had no noted convulsions/seizure activity, loss of bowel or bladder, or any other noted abnormalities. After a couple of minutes patient became responsive to painful stimuli and returned to baseline after approximately 10 minutes. MRI brain showing atrophy with mild periventricular white matter ischemic changes. Cervical spine showing disc bulging at C5-C6, C4-C5, and C3-C4 paracentral with cord contact and cord deformity reported to be present at C4-C5. Consult placed to orthospine surgery team for evaluation. Physical exam: Patient seen ,and fully evaluated at bedside. He was sitting up in chair visit ing with his fiance at bedside. Patient reports feeling "bright-eyed and bushy tailed" this morning. He reports he had another syncopal event during tilt table testing and again starting with neck pain followed by dizziness and syncopal episode. Currently patient denies having any complaints at this time.. Vital signs reviewed and stable. General: Nontoxic, no distress and appears stated age. Derm: Skin warm and dry, normal coloration for ethnicity. Head: Atraumatic, normocephalic and symmetric. Eyes: EOM's intact, no lid lag, and anicteric sclera Mouth: no lip lesions, mucus membranes moist Cardiovascular: regular rate and rhythm with normal S1S2, soft systolic murmur, positive posterior tibial pulses bilaterally, and cap refill < 2 seconds. Lungs: Respirations even, regular, and unlabored on room air. Lungs CTA bilaterally, no rhonchi, no rales, no wheezing, and no accessory muscle usage. Abdominal: soft, nontender to palpation, no guarding, no appreciable organomegaly Ext: ROM intact. No gross muscle atrophy, no edema, no contractures Neuro: Speech clear, face symmetrical and CN II-XII grossly intact with no noted focal neuro deficits. Patient with moderate resting tremors in upper extremities worse on right. Psych: Alert and oriented to person, place, time, and situation. Appropriate and pleasant affect. Assessment and Plan of Care: Recurrent Syncopal episodes, 5 episodes over last 3 months longest episode witnessed by nursing staff yesterday afternoon, all begining with pain in posterior neck followed by loss of consciousness Sinus Bradycardia Cervial Disc bulging with cord contact and cord deformity Parkinson's disease Paroxysmal atrial fibrillation on Xarelto Hyperlipidemia -Cardiology following, discussed case with engineering manager and cardiac FLOAT REMOVER stating they reviewed loop recorder report which shows no abnormalities and reviewed tilt table test stating patient had repeat syncopal episode during testing and was found to have systolic pressure in the 70s with no change in his heart rate. -Neurology following, discussed case with neurologist Dr. Olivas -Orthospine surgery team consulted, appreciate recommendations -Loop Recorder was interrogated awaiting report. Documented heart rate during hospitalization as low as 45. -Patient to remain on continuous telemetry monitoring -Continue neurochecks every 4 hours and fall precautions to be maintained -Patient to continue atorvastatin 40 mg nightly, Xarelto 20 mg nightly, carbidopa levodopa 25-100 mg tablets take 1.5 tablets 3 times daily. -Thyroid function normal with recent labs drawn on 04/18/2024 TSH resulting at 1.270 with free T4 of 1.05 and free T3 of 2.40. Data and imaging reviewed: -Orthostatic vital signs were negative blood pressure supine 144/78, heart rate 67, sitting 142/79, heart rate 107, and standing blood pressure 132/70 with heart rate of 64. -Vital signs reviewed showing blood pressure 144/76, heart rate 68, respiratory rate 16, temp 98.9 F, and SpO2 of 97% on room air. -MRI brain showing atrophy with mild periventricular white matter ischemic changes. -Cervical spine showing disc bulging at C5-C6, C4-C5, and C3-C4 paracentral with cord contact and cord deformity reported to be present at C4-C5. CODE STATUS: Full Code DVT prophylaxis: Xarelto Anticipated discharge date: Pending clinical course Anticipated discharge place: Home Patient was seen independently by Nurse Practitioner. This document was prepared using [employer] dictation software. Please allow for errors in technician assistant while rare they do occur. . I reviewed the documentation as provided by the RODGER above, who is the original author of this note. I agree with the documented assessment and plan, with the following changes: none Objective - Vital Signs Vital signs: Vital Signs Temp 97.6 F 05/16/24 20:00 Pulse 63 05/17/24 04:30 Resp 18 05/17/24 04:30 BP 163/90 05/17/24 04:30 Pulse Ox 94 L 05/17/24 04:30 FiO2 Intake & Output 05/16/24 05/17/24 05/17/24 18:59 06:59 18:59 Intake Total 496 20 Output Total 500 750 Balance -4 730 Weight 85.2 kg 82.1 kg Intake: IV 20 20 Invasive Line 1 10 20 Oral 476 Output: Urine 500 750 Other: Voiding Method External Catheter External Catheter - Labs CBC & Chem 7: 05/16/24 07:19 05/16/24 07:19 Labs: Abnormal Lab Results - Last 24 Hours (Table) 05/16/24 Range/Units 07:19 BUN 25 H (9-20) mg/dL
--- NOTE | 2024-05-17 17:15 | P.PN ---
Subjective Progress Note Date: 05/17/24 I am following-up with patient and he states he is doing well. He is accompanied with his fiance. According to the patient it seems that he had a tilt table test and while he had a tilt table test he had a syncopal episode. Objective - Vital Signs Vital signs: Vital Signs Temp 97.5 F L 05/17/24 11:20 Pulse 60 05/17/24 16:10 Resp 16 05/17/24 16:10 BP 125/68 05/17/24 16:10 Pulse Ox 96 05/17/24 16:10 FiO2 Intake & Output 05/16/24 05/17/24 05/17/24 18:59 06:59 18:59 Intake Total 496 20 496 Output Total 500 750 Balance -4 -730 496 Weight 85.2 kg 82.1 kg Intake: IV 20 20 20 Invasive Line 1 10 20 20 Oral [id number] Output: Urine 500 750 Other: Voiding Method External Catheter External Catheter External Catheter # Voids 1 # Bowel Movements 1 - Exam GENERAL: The patient is Lying in bed and is not in acute distress. NEUROLOGICAL: Higher mental function: The patient is awake, alert, oriented to self, place and time. Patient is following commands. No aphasia and no neglect. Cranial nerves: The pupils are round, equal and reactive to light and accommodation. Visual reece are full to confrontation throughout. Extraocular movement is intact no nystagmus is noted. Facial sensation is normal to touch throughout. The facial strength is normal throughout. Hearing is moderately decreased bilaterally to hand rub. Tongue is midline and moved [id number] without any difficulty. No dysarthria is noted. Shoulder shrug is normal bilaterally. Motor: The strength is 5 over 5 throughout. Normal tone and bulk. Has resting tremor of the right upper extremity that is moderate in severity. Cerebellum: Normal finger to nose heel to chin bilaterally. Sensation: Sensation is normal to touch throughout. Reflexes (right/left): 2+ Plantars are downgoing bilaterally. Some of the workup during this hospital visit consisted of: Heart rate has been in as low as 40s to mid 50s. Orthostatic vitals is supine blood pressure of 144/78 with a heart rate 67, sitting is 142/79 with heart rate of 107 and standing is 132/70 with a heart rate of 64. CT of the head is reported as no acute intracranial process. Nonspecific white matter changes, likely secondary due to chronic small vessel ischemic disease. I personally reviewed the CT and agree with the report next Carotid duplex is reported as scattered atherosclerotic disease without significant stenosis. MRI of the brain is reported as atrophy with mild periventricular white matter type changes. I personally reviewed the MRI and agree there is no acute or subacute ischemic stroke I feel the patient has old bilateral frontal flair changes more on the right than the left. MRI of the cervical spine reported as disc bulging at C5-C6 and C4-C5 and C3-C4. Cord contact and cord deformity is present at C4-C5 central and right paracentral. No signal abnormality within the cord evident. - Labs CBC & Chem 7: 05/16/24 07:19 05/16/24 07:19 Assessment and Plan Assessment: This is a 74-year-old gentleman with history of Parkinson's disease who presents to the emergency department because of syncopal episode. He had an episode yesterday while he was in yaz[employer]ism sitting down and stated that he has had lean to the right but no jerking of any extremities no foam morning around the mouth, no urinary or bowel incontinence. This is his fourth episode since January 2024. He follows up with a neurologist as an outpatient as recommended a tilt table test Recurrent syncopal episode unknown exact etiology. EEG is negative for seizure or discharges. Orthostatic vitals so far is negative. CT of the head is unremarkable for any acute process. MRI of the brain is negative for any acute or subacute ischemic stroke or any enhancement. His MRI flair changes shows bilateral frontal flair changes more on the right than the left and unsure if these are the changes causing cortical irritability leading to his syncopal episode versus cardiac in etiology. Bradycardia as low as mid 40s to 50s Severe cervical spondylosis over C3-C4, C4-C5 and C5-C6 and agree with orthopedic that I doubt these are the culprit for the patient's syncopal spells. History of Parkinson disease and it seems moderate to advanced in severity. Plan: I recommend a prolonged EEG versus an epilepsy monitoring unit to capture these episodes to assess if they are epileptic nature this could be coordinated by his outpatient neurologist as an outpatient. Patient has a pacemaker and pending report of interrogation of the pacemaker Cardiology is consulted and the primary team ordered 2D echo But cardiology team discontinue it. Pending report from the tilt table test. Orthopedic team is consulted and no intervention is recommended from them. PT and OT are consulted. Patient is on Sinemet 25-100, 1 tablet 3 times a day (8am, 12pm and at 5 PM. He is also on ropinirole 2 g 3 times a day). Will defer modification of the medication to his outpatient neurologist. His outpatient neurologist has increased his Parkinson's medication about 2 weeks ago according to the patient and his . I feel his medication are not maxed out. Per the he also has an appointment with [facility] who for possible consideration of surgical intervention for Parkinson disease Will defer the rest of the medical management to primary and other specialist Discussed with the patient by his ami who is at bedside and primary team nurse practitioner. Time with Patient: Less than 30
[2024-05-18 05:43] LABS: Glucose,Whole Blood 82 mg/dL (70-110)
--- NOTE | 2024-05-18 11:29 | P.PN ---
Subjective Progress Note Date: 05/18/24 Principal diagnosis: Syncopal episodes, multilevel cervical spondylosis/degenerative disc disease Patient evaluated at bedside today, his significant other was also present at bedside. Patient has continued to undergo multiple test for the syncopal episodes. He continues to have no rhina weakness in the bilateral upper or lower extremities. He denies any numbness or tingling to the bilateral upper or lower extremities. He has no loss of bowel or bladder function at this time. Objective - Vital Signs Vital signs: Vital Signs Temp 97.9 F 05/18/24 07:36 Pulse 61 05/18/24 11:20 Resp 17 05/18/24 11:20 BP 142/75 05/18/24 11:20 Pulse Ox 97 05/18/24 11:20 FiO2 Intake & Output 05/17/24 05/18/24 05/18/24 18:59 06:59 18:59 Intake Total 614 20 358 Output Total 800 1000 Balance -186 -980 358 Intake: IV 20 20 Invasive Line 1 20 20 Oral [id number] Output: Urine 800 1000 Other: Voiding Method External Catheter External Catheter External Catheter # Voids 1 # Bowel Movements 1 - Exam Gen: AOx3, NAD VSS stable at this time Integument: No open lesions, sores, areas of erythema are present throughout the cervical spine Palpation: No significant tenderness is present to the midline or paraspinal region of the cervical spine ROM: Full range of motion in all major muscle groups of the bilateral upper and lower extremities, no focal deficits appreciated Sensory Exam: Senory exam to light touch is intact C5-T1 Senosry exam to light touch is intact L2-S1 Motor: 5/5 strength appreciated bilateral upper extremities with shoulder elevation, shoulder abduction, elbow extension, elbow flexion, wrist extension, wrist flexion, air export coordinator 5/5 strength appreciate the bilateral lower extremities with hip flexion, knee extension, knee flexion 5/5 strength appreciated the right lower extremity with plantarflexion, dorsiflexion, EHL, FHL 4/5 strength appreciated in the left lower extremity with dorsiflexion, EHL Reflexes: 2/4 in all UE and LE Negative Christie's bilaterally Negative clonus bilaterally Special Test: Negative straight leg raise bilaterally - Labs CBC & Chem 7: 05/16/24 07:19 05/16/24 07:19 Assessment and Plan Assessment: Syncopal episodes Parkinson's Cervicalagia Multilevel cervical spondylosis, most severe levels C3-C4, C4-C5, C5-C6 Broad-based disc bulge with mild cervical spinal cord compression at C4-C5 Other medical comorbidities Plan: I was able to review MRI images and report with my attending physician. No emergent orthopedic surgical intervention is recommended at this time. Patient is demonstrating no acute myelopathic symptoms at this time, his range of motion and strength in the bilateral upper and lower extremities are adequate. MRI does demonstrate no acute signal changes in the cervical spine Discussed with both the patient and his briefly today at bedside he has degenerative findings throughout the cervical spine. I also mention that he probably has very similar changes to the lumbar spine. Other medical specialty recommendations appreciated Recommending follow-up in the outpatient setting for clinical evaluation and discussion with Dr. Childers Time with Patient: Less than 30
--- NOTE | 2024-05-18 14:01 | P.PN ---
Subjective Progress Note Date: 05/18/24 I am following-up with patient and today early in the morning he had episode of him feeling things are tilted upon looking at them. Denies any further syncopal episodes. Objective - Vital Signs Vital signs: Vital Signs Temp 97.9 F 05/18/24 07:36 Pulse 61 05/18/24 11:20 Resp 17 05/18/24 11:20 BP 142/75 05/18/24 11:20 Pulse Ox 97 05/18/24 11:20 FiO2 Intake & Output 05/17/24 05/18/24 05/18/24 18:59 06:59 18:59 Intake Total 614 20 358 Output Total 800 1000 Balance -186 -980 358 Intake: IV 20 20 Invasive Line 1 20 20 Oral [id number] Output: Urine 800 1000 Other: Voiding Method External Catheter External Catheter External Catheter # Voids 1 # Bowel Movements 1 - Exam GENERAL: The patient is Lying in bed and is not in acute distress. NEUROLOGICAL: Higher mental function: The patient is awake, alert, oriented to self, place and time. Patient is following commands. No aphasia and no neglect. Cranial nerves: The pupils are round, equal and reactive to light and accommodation. Visual reece are full to confrontation throughout. Extraocular movement is intact no nystagmus is noted. Facial sensation is normal to touch throughout. The facial strength is normal throughout. Hearing is moderately decreased bilaterally to hand rub. Tongue is midline and moved [id number] without any difficulty. No dysarthria is noted. Shoulder shrug is normal bilaterally. Motor: The strength is 5 over 5 throughout. Normal tone and bulk. Has resting tremor of the right upper extremity that is moderate in severity. Cerebellum: Normal finger to nose heel to chin bilaterally. Sensation: Sensation is normal to touch throughout. Reflexes (right/left): 2+ Plantars are downgoing bilaterally. Some of the workup during this hospital visit consisted of: Heart rate has been in as low as 40s to mid 50s. Orthostatic vitals is supine blood pressure of 144/78 with a heart rate 67, sitting is 142/79 with heart rate of 107 and standing is 132/70 with a heart rate of 64. CT of the head is reported as no acute intracranial process. Nonspecific white matter changes, likely secondary due to chronic small vessel ischemic disease. I personally reviewed the CT and agree with the report next Carotid duplex is reported as scattered atherosclerotic disease without significant stenosis. MRI of the brain is reported as atrophy with mild periventricular white matter type changes. I personally reviewed the MRI and agree there is no acute or subacute ischemic stroke I feel the patient has old bilateral frontal flair changes more on the right than the left. MRI of the cervical spine reported as disc bulging at C5-C6 and C4-C5 and C3-C4. Cord contact and cord deformity is present at C4-C5 central and right pa racentral. No signal abnormality within the cord evident. - Labs CBC & Chem 7: 05/16/24 07:19 05/16/24 07:19 Assessment and Plan Assessment: This is a 74-year-old gentleman with history of Parkinson's disease who presents to the emergency department because of syncopal episode. He had an episode yesterday while he was in buddhism sitting down and stated that he has had lean to the right but no jerking of any extremities no foam morning around the mouth, no urinary or bowel incontinence. This is his fourth episode since January 2024. He follows up with a neurologist as an outpatient as recommended a tilt table test Recurrent syncopal episodes (could be with position and at times could be at rest while laying still). Unknown exact etiology. Some of his symptoms is due to dysautonomic dysfunction and can occur in patient's with Parkinson's disease but I would expect with mostly position but not at rest. He has positive tilt table test. EEG is negative for seizure or discharges. CT of the head is unremarkable for any acute process. MRI of the brain is negative for any acute or subacute ischemic stroke or any enhancement. Bradycardia as low as mid 40s to 50s Severe cervical spondylosis over C3-C4, C4-C5 and C5-C6 and agree with orthopedic that I doubt these are the culprit for the patient's syncopal spells. History of Parkinson disease and it seems moderate to advanced in severity. Plan: I ordered a repeat EEG today since today early in morning has visual appearance of "things appearing tilted". I recommend a prolonged EEG versus an epilepsy monitoring unit to capture these episodes to assess if they are epileptic nature this could be coordinated by his outpatient neurologist as an outpatient. Patient has a pacemaker and pending report of interrogation of the pacemaker Cardiology is consulted and the primary team ordered 2D echo But cardiology team discontinue it. Pending report from the tilt table test. I spoke with nurse practioner cardiology team and the in store marketer was notified by EP that tilt table was positive. Orthopedic team is consulted and no intervention is recommended from them. PT and OT are consulted. Patient is on Sinemet 25-100, 1 tablet 3 times a day (8am, 12pm and at 5 PM. He is also on ropinirole 2 g 3 times a day). I went up on Sinemet since his Parkinson's is not controlled. I went up from 3 time 1.5 tablets daily to 4 times 2 tab daily and patient and his fiance were in agreement. Per the he also has an appointment with [facility] [place] who for possible consideration of surgical intervention for Parkinson disease Will defer the rest of the medical management to primary and other specialist Discussed with the patient, his fiance who is at bedside and primary attending. Time with Patient: Less than 30
--- NOTE | 2024-05-18 14:13 | P.PN ---
Subjective Progress Note Date: 05/18/24 HISTORY OF PRESENT ILLNESS: This is a 74-year-old male with a past medical history significant for Park inson's disease, paroxysmal A-fib, hyperlipidemia, former nicotine dependence, and syncope. Patient follows with a digital analyst in [place]. We have been asked to see the patient in consultation for syncope. Patient examined at the bedside. Patient states he was at [employer] yesterday when he began to feel dizzy and lightheaded. He states he was standing up at this time. He reports he passed out shortly afterwards. He denied having any chest pain or shortness of breath. The patient was recently admitted in March 2024 due to syncope. Patient was discharged home in stable condition with an event monitor. Apparently, since that time the patient was seen at [facility] for another syncopal episode. He had a loop recorder placed at that time. The patient currently denies any chest pain or pressure. Vital signs are stable. DIAGNOSTICS: - EKG reveals sinus bradycardia with no signs of acute ischemia - Chest xray negative for acute process -Carotid Doppler: Scattered atherosclerotic disease without significant stenosis -CT of the brain: Negative for acute process - Laboratory data: WBC 5.0. Hemoglobin 13.2. Platelet count 139. Sodium 139. Potassium 4.6. BUN 25. Creatinine 1.3. Magnesium 2.2. Troponin negative x 3. Thyroid studies from March 2024 within normal limits. TSH 1.270. - Current home cardiac medications include Lipitor 40 mg at night and Xarelto 20 mg at night - Most recent echocardiogram obtained in March 2024 revealed ejection fraction 55 to 60%, mild aortic regurgitation, mild TR - Cardiac catheterization history: Patient denies 05/16 Patient is seen in follow up. Reviewed interrogation of Loop Recorder and no abnormality noted. Reviewed results with patient and his . Patient's would really like him to have a tilt table test. Discussed with him that the tilt table test may not change any plan of care. Discussed that the symptoms are most likely due to autonomic dysfunction secondary to the Parkinson's disease. Patient states that it starts out as a muscle pain at the back of his neck and into his head and then he has a syncopal episode. Blood pressure 107/82, pulse ox 97% on room air, heart rate 55. Repeat blood work reveals WBC 5.4, hemoglobin 14.3. Sodium 130, potassium 4.2. BUN 25 creatinine 0.98. 05/17 Patient underwent tilt table test today and had a syncopal episodes with systolic blood pressure in the 70s, no change in heart rate. Patient denies having any chest pain, no dizziness. He states he is only move from the bed to the chair. No shortness of breath. Blood pressure 144/76, heart rate 58, pulse ox 97% on room air. Tilt table test report will be requested. 05/18 Patient was started on midodrine yesterday and orthostatic vital signs obtained following that did show orthostatic changes. He also underwent tilt table test which was positive. formal report is pending. Patient states that his night was uneventful. He states he woke up 5 AM and thought that his vision everything was slanted. He did not have a syncopal episode. Blood pressure 142/75, heart rate 61, pulse ox 97% on room air. No repeat blood work today. No abnormality has been noted on telemetry. PHYSICAL EXAM: VITAL SIGNS: Reviewed. GENERAL: Well-developed in no acute distress. HEENT: Head is normocephalic. Pupils are equal, round. Sclerae anicteric. Mucous membranes of the mouth are moist. Neck supple. No JVD or thyromegaly LUNGS: Respirations even and unlabored. Lungs essentially clear to auscultation bilaterally. HEART: Regular rate and rhythm. S1 and S2 heard. ABDOMEN: Soft. Nondistended. Nontender. EXTREMITIES: Normal range of motion. No clubbing or cyanosis. Peripheral pulses intact. No lower extremity edema NEUROLOGIC: Awake and alert. Oriented x 3. ASSESSMENT: Recurrent syncope suspect autonomic dysfunction secondary to Parkinson's Recent loop recorder insertion, at [facility] Coronary artery calcifications, per CT scan Paroxysmal atrial fibrillation Parkinson's disease Hyperlipidemia Former nicotine dependence PLAN: No need to repeat echocardiogram as this was performed in March 2024 Thyroid studies from 03/2024 were within normal limits Continue telemetry monitoring Continue patient on midodrine 5 mg 3 times daily starting now and later today check orthostatic vital signs Obtain tilt table test report Patient to follow-up postdischarge with his primary digital analyst in [place] No further cardiac workup is planned. Nurse practitioner note has been reviewed by physician. Signing provider agrees with the documented findings, assessment, and plan of care documented by LEATHER TOOLER as a scribe. Objective - Vital Signs Vital signs: Vital Signs Temp 97.9 F 05/18/24 07:36 Pulse 58 L 05/18/24 08:52 Resp 20 05/18/24 07:36 BP 140/74 05/18/24 07:36 Pulse Ox 94 L 05/18/24 07:36 FiO2 Intake & Output 05/17/24 05/18/24 05/18/24 18:59 06:59 18:59 Intake Total 614 20 358 Output Total 800 1000 Balance -186 -980 358 Intake: IV 20 20 Invasive Line 1 20 20 Oral [id number] Output: Urine 800 1000 Other: Voiding Method External Catheter External Catheter External Catheter # Voids 1 # Bowel Movements 1 - Labs CBC & Chem 7: 05/16/24 07:19 05/16/24 07:19
--- NOTE | 2024-05-18 14:52 | EEG ---
ELECTROENCEPHALOGRAM REPORT CLINICAL HISTORY: This is a 74-year-old gentleman with a syncopal episode. The video EEG is obtained to evaluate for seizure epileptiform activity. RELEVANT MEDICATIONS: The patient is not on any antiseizure medication. EEG TYPE: This is a routine 21-channel EEG with video using the 10/20 electrode placement system. DESCRIPTION: Wakefulness is only obtained. During awake state, the background consists of low to moderate voltage of 7 to 8 hertz activity. There is no physiological stage 2 sleep architecture. There is no focal slowing. Interictal and ictal is none. ACTIVATION PROCEDURE: Photic stimulation and hyperventilation are not performed. CLINICAL INTERPRETATION: This is an abnormal routine EEG. The background slowing is suggestive of mild encephalopathy. Otherwise, there is no focal slowing, epileptiform discharge, or seizure on the EEG. Clinical correlation is recommended. EVERARDO / JUAN: [id number] / MTDD
[2024-05-18] MEDS: CARBIDOPA-LEVODOPA 25-100 MG 1 EACH TAB PO SCH (15:08)
--- NOTE | 2024-05-18 20:17 | P.EPPROC ---
- EP Procedure Note Electrophysiology Procedure Note: Diagnosis recurrent syncope Twelve-lead EKG shows sinus rhythm normal MN narrow QRS normal ST segments normal QT interval Tilt able test per protocol Tilt able test demonstrated progressive decline in blood pressure in the upright position without a change in heart rate Blood pressure at baseline 183/96 mmHg in the supine position Within 12 minutes blood pressure was between 60 to 70 mmHg systolic and the patient passed out Impression Normal twelve-lead EKG Severe dysautonomia with orthostatic hypotension syndrome, rapid and progressive Prior to tilt table testing, a 1 minute and 3-minute orthostatic blood pressure and heart rate is a simple method to evaluate for orthostatic hypotension syndrome/dysautonomia
[2024-05-18 21:16] VITALS: RESP 16
--- NOTE | 2024-05-19 03:04 | EEG ---
ELECTROENCEPHALOGRAM REPORT CLINICAL HISTORY: This is a 74-year-old gentleman with history of Parkinson disease with recurrent syncopal spells. The video EEG is obtained to evaluate for seizure epileptiform activity. RELEVANT MEDICATION: The patient is not on any antiseizure medication. EEG TYPE: This a routine 21 channel EEG with video using the 10/20 electrode placement system. DESCRIPTION: Wakefulness and drowsiness are obtained. During awake state, the posterior-dominant rhythm consists of [id number] voltage of 7.5 to 8 hertz activity that is well modulated, well sustained. There is no physiological stage 2 sleep architecture. There is no focal slowing. Interictal and ictal are none. ACTIVATION PROCEDURE: Photic stimulation did not evoke a posterior driving response. There is no abnormality during the photic stimulation. Hyperventilation is not performed. CLINICAL INTERPRETATION: This is an abnormal routine EEG. The background slowing is suggestive of mild encephalopathy. Otherwise, there is no focal slowing, epileptiform discharge, or seizure on the EEG. Clinical correlation is recommended. MMHERIBERTO / MAYURN: [id number] /
[2024-05-19 10:09] VITALS: TEMP 97.5
[2024-05-19 12:49] VITALS: BP 127/75; PULSE 63
--- NOTE | 2024-05-19 13:53 | P.PN ---
Subjective Progress Note Date: 05/19/24 I am following-up with patient and per patient and his significant other no further syncopal spells. Patient feels there is some improvement in his tremors after increase of Sinemet. Objective - Vital Signs Vital signs: Vital Signs Temp 97.5 F L 05/19/24 08:00 Pulse 63 05/19/24 12:00 Resp 16 05/19/24 12:00 BP 127/75 05/19/24 12:00 Pulse Ox 96 05/19/24 12:00 FiO2 Intake & Output 05/18/24 05/19/24 05/19/24 18:59 06:59 18:59 Intake Total 594 Output Total 700 1500 Balance -106 -1500 Weight 83.2 kg Intake: Oral 594 Output: Urine 700 1500 Other: Voiding Method External Catheter External Catheter External Catheter - Exam GENERAL: The patient is Lying in bed and is not in acute distress. NEUROLOGICAL: Higher mental function: The patient is awake, alert, oriented to self, place and time. Patient is following commands. No aphasia and no neglect. Cranial nerves: The pupils are round, equal and reactive to light and a ccommodation. Visual reece are full to confrontation throughout. Extraocular movement is intact no nystagmus is noted. Facial sensation is normal to touch throughout. The facial strength is normal throughout. Hearing is moderately decreased bilaterally to hand rub. Tongue is midline and moved [id number] without any difficulty. No dysarthria is noted. Shoulder shrug is normal bilaterally. Motor: The strength is 5 over 5 throughout. Normal tone and bulk. Has resting tremor of the right upper extremity that is moderate in severity. Cerebellum: Normal finger to nose heel to chin bilaterally. Sensation: Sensation is normal to touch throughout. Reflexes (right/left): 2+ Plantars are downgoing bilaterally. Some of the workup during this hospital visit consisted of: Heart rate has been in as low as 40s to mid 50s. Orthostatic vitals is supine blood pressure of 144/78 with a heart rate 67, sitting is 142/79 with heart rate of 107 and standing is 132/70 with a heart rate of 64. CT of the head is reported as no acute intracranial process. Nonspecific white matter changes, likely secondary due to chronic small vessel ischemic disease. I personally reviewed the CT and agree with the report next Carotid duplex is reported as scattered atherosclerotic disease without significant stenosis. MRI of the brain is reported as atrophy with mild periventricular white matter type changes. I personally reviewed the MRI and agree there is no acute or subacute ischemic stroke I feel the patient has old bilateral frontal flair changes more on the right than the left. MRI of the cervical spine reported as disc bulging at C5-C6 and C4-C5 and C3-C4. Cord contact and cord deformity is present at C4-C5 central and right paracentral. No signal abnormality within the cord evident. Tilt table test on 05/18/2024 is reported as normal twelve-lead EKG. 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 Prior to the tilt table testing, a 1 minute and 3-minute orthostatic blood pressure and heart rate is a simple method to evaluate for orthostatic hyp otension syndrome/dysautonomia Repeat EEG is abnormal. The back is only suggestive of mild encephalopathy. Otherwise there is no focal slowing, performed discharges or seizure on the EEG - Labs CBC & Chem 7: 05/16/24 07:19 05/16/24 07:19 Assessment and Plan Assessment: This is a 74-year-old gentleman with history of Parkinson's disease who presents to the emergency department because of syncopal episode. He had an episode yesterday while he was in [employer] sitting down and stated that he has had lean to the right but no jerking of any extremities no foam morning around the mouth, no urinary or bowel incontinence. This is his fourth episode since January 2024. He follows up with a neurologist as an outpatient as recommended a tilt table test Recurrent syncopal episodes Seems probable due to his severe dysautonomia with orthostatic hypotension, rapid and progressive (on tilt table test) due to his advanced Parkinson's disease. EEG X2 is negative for seizure or discharges. CT of the head is unremarkable for any acute process. MRI of the brain is negative for any acute or subacute ischemic stroke or any enhancement. Bradycardia as low as mid 40s to 50s Severe cervical spondylosis over C3-C4, C4-C5 and C5-C6 and agree with orthopedic that I doubt these are the culprit for the patient's syncopal spells. History of Parkinson disease and it seems moderate to advanced in severity. Plan: I recommend a prolonged EEG versus an epilepsy monitoring unit to capture these episodes to assess if they are epileptic nature and this could be coordinated by his outpatient neurologist as an outpatient. But again I highly doubt it. Patient has a pacemaker and pending report of interrogation of the pacemaker Patient's did not want him on Midodrine since felt his blood pressure was going up. Consider Florinef vs salt tablet vs compression stocking. Orthopedic team is consulted and no intervention is recommended from them. PT and OT are consulted. Patient is on Sinemet 25-100, 1 tablet 3 times a day (8am, 12pm and at 5 PM. He is also on ropinirole 2 g 3 times a day). I went up on Sinemet since his Parkinson's is not controlled. I went up from 3 time 1.5 tablets daily to 4 times 2 tab daily and patient and his fiance were in agreement (change was made on 05/18/2024 and patient feels there is mild improvement in symptoms). Per the he also has an appointment with [facility] in end of May 2024 who for possible consideration of surgical intervention for Parkinson disease. Will defer the rest of the medical management to primary and other specialist Recommend the patient to follow-up with movement disorder specialist as outpatient. Discussed with the patient, his fiance who is at bedside and primary attending. Time with Patient: Less than 30
--- NOTE | 2024-05-19 13:57 | P.DS ---
Providers Date of admission: 05/15/24 15:18 Expected date of discharge: 05/19/24 Attending physician: Maritza Frances, Consults: 05/14/24 12:57 Consult Physician Urgent Consulting Provider: Denzel Kaye Consult Reason/Comments: syncope Do you want consulting provider notified?: Yes 05/14/24 14:46 Consult Physician Routine Consulting Provider: Jaspreet Olivas Consult Reason/Comments: syncopal episode Do you want consulting provider notified?: Yes 05/17/24 08:26 Consult Physician Urgent Consulting Provider: Jeremy Childers Consult Reason/Comments: disc bulging w/ cord contact and cord deformity C4- 5, recurrent syncope Do you want consulting provider notified?: Yes Primary care physician: Physician Nonstaff Hospital Course: 74-year-old male with a PMH of Parkinson's disease, atrial fibrillation on Xarelto, and hyperlipidemia. He presented to the emergency department after a witnessed syncopal episode. Patient reports he was sitting in [place] and got a pain in the back of his neck up into his head accompanied by some lightheadedness and the next thing he remembers is waking up. Patient's significant other at bedside reports he just slumped over and was completely unresponsive for approximately 7 minutes and when he awoke he was drowsy but oriented and reported pain in the back of his neck and right shoulder. No involuntary loss of bowel or bladder. Family denies patient having any convulsing or shaking movements and denies him hitting his head during syncopal episode. Patient and family at bedside reports this is the fourth syncopal episode patient has had in the last 3 months and that he underwent evaluation at [place] where he had a loop recorder placed. On arrival to our facility, patient underwent evaluation in the ED. Vital signs BP 114/69, HR 46, RR 16, T 97.7 F, and SpO2 of 99% on RA. EKG completed showing sinus bradycardia at 48 bpm with no significant T wave or ST abnormalities. Chest x-ray negative for acute cardiopulmonary process. CBC showing platelet count of 139. Coagulation profile showing PT of 13.9, INR 1.3, and PTT of 33.0. BMP showing bicarb of 33 and BUN of 25, creatinine 1.30, GFR 54. Blood glucose 91. Liver profile unremarkable. Troponin negative at less than 0.012. Patient admitted under our services with consultation to cardiology and neurology. Orthostatic vital signs completed and negative for orthostatic hypotension. CT brain without contrast was negative for acute intracranial process showing nonspecific white matter changes likely secondary to chronic small vessel ischemic disease. Carotid Dopplers completed showing scattered atherosclerotic disease without significant stenosis. On the afternoon of 05/15/2024, patient again had a witnessed syncopal episode while sitting up in his chair. Patient was reportedly sitting in chair for approximately 90 minutes talking on the phone to his daughter when suddenly he complained of pain in his posterior neck which was followed by syncopal episode with loss of consciousness lasting a couple minutes prior to nursing staff transferring patient to bed. A team was called and patient was assessed at bedside. Vital signs during this event were stable, blood glucose was 108 and telemetry unchanged during event as patient remained in sinus bradycardia with rate maintaining in 50s throughout the entire event. Patient again had no noted convulsions/seizure activity, loss of bowel or bladder, or any other noted abnormalities. After a couple of minutes patient became responsive to painful stimuli and returned to baseline after approximately 10 minutes. MRI brain showing atrophy with mild periventricular white matter ischemic changes. Cervical spine showing disc bulging at C5-C6, C4-C5, and C3-C4 paracentral with cord contact and cord deformity reported to be present at C4-C5. Consult placed to orthospine surgery team for evaluation who recommended outpatient follow up. He underwent a Tilt table test which was positive. 05/18 Patient was seen and examined. at bedside. Case discussed in detail with the patient and also with Dr. Henriquez at bedside. His symptoms are likely related to autonomic dysfunction. We have attempted a trial of Midodrine but has been stopped due to elevated BP. Patient advised BERNIE hose compression stockings. Patient advised slow positional changes. Case discussed with Dr. Olivas we are currently awaiting an EEG. He should follow up with his Neurologist for further treatment with regard to his Parkinsons. Plans for discharge home if EEG is negative. 05/19 Patient was seen and examined. No events overnight. EEG is negative for seizure. Discussed with Dr. Olivas. His Carbidopa/Levodopa is increased. Advised and patient to follow up with Neurology for further management of Parkinsons. Follow up with Dr. Childers in 3 weeks. Follow up with PCP within 1-2 days. General: non toxic, no distress, appears at stated age Derm: warm, dry, left chest bruising Head: atraumatic, normocephalic, symmetric Eyes: EOMI, no lid lag, anicteric sclera Mouth: no lip lesion, mucus membranes moist Cardiovascular: S1S2 jackelin, no murmur Lungs: Clear to auscultation bilaterally, no rhonchi, no rales , no accessory muscle use Ext: no gross muscle atrophy, no edema, no contractures Neuro: resting tremor of the right hand Psych: Alert, oriented, appropriate affect Discharge Diagnosis: Recurrent syncopal episodes likely related to autonomic dysfunction: + Tilt table test. Loop recorder negative. Orthostats negative. Patient advised slow positional changes. Advised BERNIE hose thigh high. Cervial Disc bulging with cord contact and cord deformity: Orthopedic surgery recommends outpatient follow up, likely not the cause of his syncope. Discussed with Ortho PA Parkinson's disease: Carbidopa/Levodopa 25-100mg 2 tab PO QID. Paroxysmal atrial fibrillation: Xarelto 20 mg PO QHS. Hyperlipidemia: Lipitor 40 mg PO QHS. This complex discharge took 35 minutes to complete. Patient Condition at Discharge: Stable Plan - Discharge Summary New Discharge Prescriptions: New Carbidopa-Levodopa 25-100 mg [Sinemet 25-100 mg] 2 each PO 0800,1200,1600,2000 tab Continue rOPINIRole HCL [Requip] 2 mg PO TID@0800,1200,1700 Rivaroxaban [Xarelto] 20 mg PO HS Atorvastatin [Lipitor] 40 mg PO HS Melatonin 10 mg PO HS Sennosides [Senokot] 17.2 mg PO HS Vibegron [Gemtesa] 75 mg PO HS Discontinued Carbidopa-Levodopa 25-100 mg [Sinemet 25-100 mg] 1.5 tab PO TID@0800,1200,1700 Discharge Medication List rOPINIRole HCL [Requip] 2 mg PO TID@0800,1200,1700 01/23/19 [History] Atorvastatin [Lipitor] 40 mg PO HS 04/16/24 [History] Melatonin 10 mg PO HS 04/16/24 [History] Rivaroxaban [Xarelto] 20 mg PO HS 04/16/24 [History] Sennosides [Senokot] 17.2 mg PO HS 05/14/24 [History] Vibegron [Gemtesa] 75 mg PO HS 05/14/24 [History] Carbidopa-Levodopa 25-100 mg [Sinemet 25-100 mg] 2 each PO 0800,1200,1600,1999 tab 05/19/24 [Rx] Follow up Appointment(s)/Referral(s): Nonstaff,Physician [Primary Care Provider] - 1-2 days Jeremy Childers DO [Doctor of Osteopathic Medicine] - 3 Weeks (Please call to schedule your appt. ) Patient Instructions/Handouts: Seizure/Epilepsy Discharge Instructions & Follow-Up Activity/Diet/Wound Care/Special Instructions: Follow up with your primary Mobile Manager in 1 week. Please follow up with your primary Neurologist in 1 week. Discharge Disposition: HOME SELF-CARE
== END 2024-05-19 13:52 | disposition home or self-care (01) | DRG 312 ==
LOC: EC 10:55 → 6NMEDSUR 12:58 → OBSVTOIN 05-15 15:18 → 3SCARD 05-15 17:25
PROVIDERS: ADMIT Internal Medicine; ATTEND Internal Medicine
PROC: 4A03XB1 Measurement of Arterial Pressure, Peripheral, External Approach (ICD-10-PCS; principal; 2024-05-18)
DX: I95.1 Orthostatic hypotension (principal); G93.40 Encephalopathy, unspecified; M47.12 Other spondylosis with myelopathy, cervical region; D69.6 Thrombocytopenia, unspecified; G20.A1 Parkinson's disease without dyskinesia, without mention of fluctuations; E78.5 Hyperlipidemia, unspecified; I48.0 Paroxysmal atrial fibrillation; G89.29 Other chronic pain; I25.10 Atherosclerotic heart disease of native coronary artery without angina pectoris; R00.1 Bradycardia, unspecified; R79.1 Abnormal coagulation profile; R06.89 Other abnormalities of breathing; Z79.01 Long term (current) use of anticoagulants; Z79.899 Other long term (current) drug therapy; Z87.891 Personal history of nicotine dependence; Z95.818 Presence of other cardiac implants and grafts
CPT/HCPCS: 36415; 70450; 70553; 71046; 72141; 80053; 83735; 84484; 85025; 85027; 85610; 85730; 93005; 93660; 93880; 95816; 99285